=== PATIENT | male | born 1935 | race Caucasian/White ===

== ENCOUNTER → 2016-07-21 | Outpatient (REF) | payer MEDICARE, BC ==
[~2016-07-21] MED LIST: /PANT40TA OR; /TAMS4CA OR; ALBU17IN INH; ALBU83IN IN; ALDA25TA2 OR; APAP325T PO; ASPI81TA3 OR; ASPI81TA85 PO; ATEN50TA2 OR; ATOR40TA PO; CARDIZEM CD PO; CART120C PO; CIPR500T89 PO; COUM1TAB17 PO; COUM2.5T11 PO; COZA25TA8 OR; DIGO0.12 PO; DIGO0.126 OR; DIGO0.25 PO; DILT120C82 PO; DITR5TAB PO; FINA5TAB2 PO; FLOM5CAP PO; FURO1TAB15 PO; FURO20TA2 PO; INSP25TA PO; K-TA10TA2 PO; LASI20TA OR; LOSA25TA8 PO; METF500T PO; METF500T4 PO; MILKSUS PO; MIRA3350 PO; PANT40TA2 PO; PERC5TAB6 PO; POTA10TA16 PO; PROS5TAB OR; SENO8.6T2 PO; TYLE650T25 PO; VENTAER IN; WARF-18 PO; WARF-23 PO; WARF1TAB OR; WARF1TAB PO
[2016-07-21 13:08] LABS: VITAMIN B12 LEVEL 333 PG/ML
[2016-07-21 13:09] LABS: FOLATE 10.7 NG/ML
[2016-07-21 13:11] LABS: MEAN CORPUSCULAR HGB CONC 32.3 g/dl (32.0-36.5); MEAN CORPUSCULAR VOLUME 80.6 fl (80.0-96.0); WHITE BLOOD COUNT 6.7 K/mm3 (4.0-10.0)
[2016-07-21 13:13] LABS: ALBUMIN 3.9 GM/DL (3.2-5.2); ALBUMIN/GLOBULIN RATIO 1.18 (1.00-1.93); ALKALINE PHOSPHATASE 53 U/L (45-117); ALT/SGPT 18 U/L (12-78); ANION GAP 9 MEQ/L (8-16); AST/SGOT 15 U/L (15-37); BLOOD UREA NITROGEN 17 MG/DL (7-18); CALCIUM LEVEL 8.7 MG/DL (8.8-10.2); CARBON DIOXIDE LEVEL 29 MEQ/L (21-32); CHLORIDE LEVEL 106 MEQ/L (98-107); CREATININE FOR GFR 0.98 MG/DL (0.70-1.30); FERRITIN 30 NG/ML (26-388); GLOMERULAR FILTRATION RATE > 60.0 (>35); GLUCOSE, FASTING 136 MG/DL (83-110); PERCENT SATURATION 20.4 % (19.7-37.4); POTASSIUM SERUM 4.6 MEQ/L (3.5-5.1); SODIUM LEVEL 144 MEQ/L (136-145); TOTAL IRON BINDING CAPACITY 368 UG/DL (250-450); TOTAL PROTEIN 7.2 GM/DL (6.4-8.2)
[2016-07-23 10:54] LABS: MAGNESIUM LEVEL 2.1 MG/DL (1.8-2.4)
== END ==
LOC: M SFHCPLAZ 09:26
PROVIDERS: ATTEND Internal Medicine
DX: D64.9 Anemia, unspecified (principal); R73.01 Impaired fasting glucose; I11.0 Hypertensive heart disease with heart failure; R00.2 Palpitations; R94.31 Abnormal electrocardiogram [ECG] [EKG]; E78.00 Pure hypercholesterolemia, unspecified; I48.0 Paroxysmal atrial fibrillation; Z79.01 Long term (current) use of anticoagulants

== ENCOUNTER → 2016-10-31 | Outpatient (CLI) | payer MEDICARE, BC ==
--- NOTE | 2016-10-31 14:09 | REP ---
Clinical: Acute pain. Technique: AP, lateral, bilateral oblique views of the right wrist. Findings: Generalized moderate osteoarthritic degenerative changes are appreciated. No acute fracture or dislocation identified. Impression: Moderate osteoarthritic degenerative changes Signed by Priyank Mosqueda MD 10/31/2016 02:01 P
== END ==
LOC: M ADAMS 13:39
PROVIDERS: ATTEND Physician Assistant Medical
DX: M19.031 Primary osteoarthritis, right wrist (principal)

== ENCOUNTER → 2017-01-20 | Outpatient (REF) | payer MEDICARE, BC ==
[~2017-01-20] MED LIST changes: -APAP325T PO; +APAP325T4 PO; -ATOR40TA PO; +ATOR40TA75 PO; +CIPR-249 PO; -CIPR500T89 PO; -COUM2.5T11 PO; +COUM2.5T17 PO; -FURO1TAB15 PO; +FURO80TA2 PO; -METF500T PO; +METF500T13 PO; +PERC5TAB12 PO; -PERC5TAB6 PO; -SENO8.6T2 PO; +SENO8.6T5 PO
[2017-01-20 12:53] LABS: MEAN CORPUSCULAR HEMOGLOBIN 28.2 pg (27.0-33.0); MEAN CORPUSCULAR HGB CONC 33.8 g/dl (32.0-36.5); MEAN CORPUSCULAR VOLUME 83.2 fl (80.0-96.0); RED CELL DISTRIBUTION WIDTH 15.7 % (11.5-14.5); WHITE BLOOD COUNT 8.7 K/mm3 (4.0-10.0)
[2017-01-20 13:57] LABS: ALBUMIN 3.7 GM/DL (3.2-5.2); ALKALINE PHOSPHATASE 51 U/L (45-117); ALT/SGPT 26 U/L (12-78); ANION GAP 9 MEQ/L (8-16); AST/SGOT 17 U/L (15-37); BILIRUBIN,TOTAL 0.9 MG/DL (0.2-1.0); BLOOD UREA NITROGEN 14 MG/DL (7-18); CALCIUM LEVEL 8.8 MG/DL (8.8-10.2); CARBON DIOXIDE LEVEL 28 MEQ/L (21-32); CHLORIDE LEVEL 103 MEQ/L (98-107); CREATININE FOR GFR 1.12 MG/DL (0.70-1.30); GLOMERULAR FILTRATION RATE > 60.0 (>35); GLUCOSE, FASTING 180 MG/DL (83-110); MAGNESIUM LEVEL 2.2 MG/DL (1.8-2.4); POTASSIUM SERUM 4.3 MEQ/L (3.5-5.1); SODIUM LEVEL 140 MEQ/L (136-145); TOTAL PROTEIN 7.4 GM/DL (6.4-8.2)
== END ==
LOC: M SFHCADAM 09:40
PROVIDERS: ATTEND Internal Medicine
DX: D64.9 Anemia, unspecified (principal); R73.01 Impaired fasting glucose; I11.0 Hypertensive heart disease with heart failure

== ENCOUNTER → 2017-05-15 | Outpatient (REF) | payer MEDICARE, BC ==
[2017-05-15 14:35] LABS: BLOOD UREA NITROGEN 14 MG/DL (7-18); CREATININE FOR GFR 1.02 MG/DL (0.70-1.30); GLOMERULAR FILTRATION RATE > 60.0 (>35); URIC ACID 5.2 MG/DL (3.5-7.2)
== END ==
LOC: M LABDRWAD 12:14
PROVIDERS: ATTEND Physician Assistant Medical
DX: M10.032 Idiopathic gout, left wrist (principal)

== ENCOUNTER 2017-06-12 08:03 | Emergency (ER) | payer MEDICARE, BC | END 2017-06-12 09:09 | disposition home or self-care (01) | LOC: M ED 08:03 | DX: S66.911A Strain of unspecified muscle, fascia and tendon at wrist and hand level, right hand, initial encounter (principal); X58.XXXA Exposure to other specified factors, initial encounter; Y92.018 Other place in single-family (private) house as the place of occurrence of the external cause; Y93.89 Activity, other specified; Y99.8 Other external cause status; M67.431 Ganglion, right wrist; I11.0 Hypertensive heart disease with heart failure; I50.9 Heart failure, unspecified; Z79.899 Other long term (current) drug therapy; Z79.01 Long term (current) use of anticoagulants; Z88.8 Allergy status to other drugs, medicaments and biological substances | CPT/HCPCS: 73110 ==

== ENCOUNTER → 2017-07-21 | Outpatient (REF) | payer MEDICARE, BC ==
[2017-07-21 13:36] LABS: HEMATOCRIT 39.7 % (42.0-52.0); HEMOGLOBIN 12.6 g/dl (14.0-18.0); MEAN CORPUSCULAR HEMOGLOBIN 26.7 pg (27.0-33.0); MEAN CORPUSCULAR HGB CONC 31.7 g/dl (32.0-36.5); MEAN CORPUSCULAR VOLUME 84.1 fl (80.0-96.0); PLATELET COUNT, AUTOMATED 217 10^3/uL (150-450); RED BLOOD COUNT 4.72 10^6/uL (4.30-6.10); RED CELL DISTRIBUTION WIDTH 15.4 % (11.5-14.5); WHITE BLOOD COUNT 7.8 10^3/uL (4.0-10.0)
[2017-07-21 13:56] LABS: ALBUMIN 4.1 GM/DL (3.2-5.2); ALBUMIN/GLOBULIN RATIO 1.24 (1.00-1.93); ALKALINE PHOSPHATASE 47 U/L (45-117); ALT/SGPT 24 U/L (12-78); ANION GAP 6 MEQ/L (8-16); AST/SGOT 21 U/L (7-37); BILIRUBIN,TOTAL 1.2 MG/DL (0.2-1.0); BLOOD UREA NITROGEN 14 MG/DL (7-18); CALCIUM LEVEL 8.4 MG/DL (8.8-10.2); CARBON DIOXIDE LEVEL 29 MEQ/L (21-32); CHLORIDE LEVEL 106 MEQ/L (98-107); CHOLESTEROL LEVEL 89 MG/DL (<200); CHOLESTEROL RISK RATIO 2.119 (<5); CREATININE FOR GFR 1.01 MG/DL (0.70-1.30); GLOMERULAR FILTRATION RATE > 60.0 (>35); GLUCOSE, FASTING 166 MG/DL (70-100); HDL CHOLESTEROL 42 MG/DL (>40); LDL CHOLESTEROL 29.2 MG/DL (<100); NON-HDL-C 47 MG/DL; POTASSIUM SERUM 4.1 MEQ/L (3.5-5.1); SODIUM LEVEL 141 MEQ/L (136-145); TOTAL PROTEIN 7.4 GM/DL (6.4-8.2); TRIGLYCERIDES LEVEL 89 MG/DL (<150)
[2017-07-21 13:59] LABS: ESTIMATED AVERAGE GLUCOSE 166 MG/DL (60-110); HEMOGLOBIN A1c 7.4 %
[2017-07-21 14:57] LABS: MALB URINE SIEMENS 49.7 MG/L; MAU/CREAT RATIO 29.5 MCG/MG (0.0-30.0)
== END ==
LOC: M SFHCADAM 09:30
DX: D64.9 Anemia, unspecified (principal); I50.32 Chronic diastolic (congestive) heart failure; R73.01 Impaired fasting glucose; E78.00 Pure hypercholesterolemia, unspecified
CPT/HCPCS: 83735

== ENCOUNTER 2017-08-13 10:56 | Emergency (ER) | payer MEDICARE, BC ==
[2017-08-13 11:48] LABS: BASO % 0.3 % (0.0-1.0); EOS % 0.4 % (0.0-3.0); HEMATOCRIT 36.8 % (42.0-52.0); HEMOGLOBIN 12.1 g/dl (14.0-18.0); IMMATURE GRANULOCYTE % 0.4 % (0-3.0); LYMPH # 0.8 10^3/uL (1.5-4.5); LYMPH % 10.3 % (24.0-44.0); MEAN CORPUSCULAR HEMOGLOBIN 27.6 pg (27.0-33.0); MEAN CORPUSCULAR HGB CONC 32.9 g/dl (32.0-36.5); MONO # 0.5 10^3/uL (0.0-0.8); MONO % 5.8 % (0.0-5.0); NEUTROPHILS # 6.6 10^3/uL (1.8-7.7); NEUTROPHILS % 82.8 % (36.0-66.0); PLATELET COUNT, AUTOMATED 173 10^3/uL (150-450); RED BLOOD COUNT 4.38 10^6/uL (4.30-6.10); RED CELL DISTRIBUTION WIDTH 14.9 % (11.5-14.5)
[2017-08-13 12:02] LABS: INR 1.93; PROTHROMBIN TIME 22.7 SECONDS (12.4-14.5)
[2017-08-13 12:15] LABS: NT-PRO BNP 233 PG/ML (<450)
[2017-08-13 12:16] LABS: ALBUMIN 3.7 GM/DL (3.2-5.2); ALBUMIN/GLOBULIN RATIO 1.16 (1.00-1.93); ALKALINE PHOSPHATASE 46 U/L (45-117); ALT/SGPT 28 U/L (12-78); ANION GAP 6 MEQ/L (8-16); AST/SGOT 23 U/L (7-37); BILIRUBIN,DIRECT 0.3 MG/DL (0.0-0.2); BILIRUBIN,TOTAL 0.9 MG/DL (0.2-1.0); BLOOD UREA NITROGEN 18 MG/DL (7-18); CALCIUM LEVEL 8.3 MG/DL (8.8-10.2); CARBON DIOXIDE LEVEL 29 MEQ/L (21-32); CHLORIDE LEVEL 106 MEQ/L (98-107); CPK CREATINE PHOSPHOKINASE 160 U/L (39-308); CREATININE FOR GFR 1.07 MG/DL (0.70-1.30); GLOMERULAR FILTRATION RATE > 60.0 (>35); GLUCOSE, FASTING 210 MG/DL (70-100); LIPASE 169 U/L (73-393); SODIUM LEVEL 141 MEQ/L (136-145); TOTAL PROTEIN 6.9 GM/DL (6.4-8.2); TROPONIN I 0.02 NG/ML (< 0.10)
[2017-08-13 12:21] LABS: MB/CK RELATIVE INDEX 1.87 (< OR =4)
[2017-08-13 12:59] LABS: DIGOXIN LEVEL 1.1 NG/ML (0.5-2.0)
[2017-08-13 18:01] LABS: CK-MB VALUE MASS 3.4 NG/ML (0.0-3.6); CPK CREATINE PHOSPHOKINASE 164 U/L (39-308); MB/CK RELATIVE INDEX 2.07 (< OR =4); TROPONIN I < 0.02 NG/ML (< 0.10)
== END 2017-08-13 18:47 | disposition home or self-care (01) ==
LOC: M ED 10:56
DX: R55 Syncope and collapse (principal); I48.91 Unspecified atrial fibrillation; I50.9 Heart failure, unspecified; N40.0 Benign prostatic hyperplasia without lower urinary tract symptoms; I49.5 Sick sinus syndrome; I34.9 Nonrheumatic mitral valve disorder, unspecified; N52.9 Male erectile dysfunction, unspecified; Z95.0 Presence of cardiac pacemaker; Z87.891 Personal history of nicotine dependence; Z88.8 Allergy status to other drugs, medicaments and biological substances; Z79.899 Other long term (current) drug therapy; Z79.01 Long term (current) use of anticoagulants
CPT/HCPCS: 71046

== ENCOUNTER → 2017-10-14 | Outpatient (CLI) | payer MEDICARE, BC ==
[2017-10-14 12:08] LABS: HEMATOCRIT 39.7 % (42.0-52.0); HEMOGLOBIN 12.8 g/dl (13.5-17.5); MEAN CORPUSCULAR HEMOGLOBIN 27.2 pg (27.0-33.0); MEAN CORPUSCULAR HGB CONC 32.2 g/dl (32.0-36.5); MEAN CORPUSCULAR VOLUME 84.5 fl (80.0-96.0); PLATELET COUNT, AUTOMATED 206 10^3/uL (150-450); RED CELL DISTRIBUTION WIDTH 15.3 % (11.5-14.5); WHITE BLOOD COUNT 7.6 10^3/uL (4.0-10.0)
[2017-10-14 12:15] LABS: APPEARANCE, URINE CLEAR (CLEAR); BACTERIA, URINE AUTO NEGATIVE (NEGATIVE); BILIRUBIN, URINE AUTO NEGATIVE (NEGATIVE); BLOOD, URINE BLOOD NEGATIVE (NEGATIVE); COLOR, URINE YELLOW (YELLOW); GLUCOSE, URINE (UA) AUTO NEGATIVE (NEGATIVE); KETONE, URINE AUTO NEGATIVE (NEGATIVE); LEUKOCYTE ESTERASE, URINE AUTO NEGATIVE (NEGATIVE); MUCUS, URINE SMALL (NEGATIVE); NITRITE, URINE AUTO NEGATIVE (NEGATIVE); PROTEIN, URINE AUTO NEGATIVE (NEGATIVE); RBC, URINE AUTO 3 /HPF (0-3); SPECIFIC GRAVITY URINE AUTO 1.018 (1.002-1.035); SQUAMOUS EPITHELIAL CELL UR AU 1 /HPF (0-6); UROBILINOGEN, URINE AUTO 0.2 mg/dL (0.0-2.0); WBC, URINE AUTO 1 /HPF (0-3)
[2017-10-14 12:20] LABS: PROTHROMBIN TIME 24.3 SECONDS (12.4-14.5)
[2017-10-14 12:45] LABS: ALBUMIN/GLOBULIN RATIO 1.03 (1.00-1.93); ALKALINE PHOSPHATASE 55 U/L (45-117); ALT/SGPT 27 U/L (12-78); ANION GAP 2 MEQ/L (8-16); AST/SGOT 26 U/L (7-37); BILIRUBIN,TOTAL 0.9 MG/DL (0.2-1.0); BLOOD UREA NITROGEN 16 MG/DL (7-18); CALCIUM LEVEL 9.1 MG/DL (8.8-10.2); CARBON DIOXIDE LEVEL 32 MEQ/L (21-32); CHLORIDE LEVEL 107 MEQ/L (98-107); CREATININE FOR GFR 0.99 MG/DL (0.70-1.30); GLOMERULAR FILTRATION RATE > 60.0 (>35); GLUCOSE, FASTING 118 MG/DL (70-100); POTASSIUM SERUM 4.4 MEQ/L (3.5-5.1); SODIUM LEVEL 141 MEQ/L (136-145); TOTAL PROTEIN 7.9 GM/DL (6.4-8.2)
[2017-10-14 13:01] LABS: ERYTHROCYTE SEDIMENTATION RATE 19 mm/hr (0-20)
== END ==
LOC: M ADMPAT 10:27
DX: M17.11 Unilateral primary osteoarthritis, right knee (principal); Z79.01 Long term (current) use of anticoagulants
CPT/HCPCS: 80053

== ENCOUNTER 2017-10-27 08:40 | Inpatient (IN) | payer MEDICARE, BC ==
[2017-10-27 09:35] LABS: INR 1.27; PROTHROMBIN TIME 16.2 SECONDS (12.4-14.5)
[2017-10-27] MEDS ORDERED: fentaNYL 100 MCG/2 ML INJECTION (J3010) As Ordered ×2 (09:40→11:21)
[2017-10-27] MEDS ORDERED: MIDAZOLAM INJ 2 MG/2 ML VIAL (J2250) As Ordered ×2 (09:40→11:21)
[2017-10-27] MEDS: ACETAMINOPHEN 500 MG TAB PO (09:47)
[2017-10-27] MEDS: LR 1,000 ML IV ×3 (09:48→13:15)
[2017-10-27] MEDS: fentaNYL 100 MCG/2 ML INJECTION (J3010) IV (10:08)
[2017-10-27] MEDS: MIDAZOLAM INJ 2 MG/2 ML VIAL (J2250) IV (10:08)
[2017-10-27] MEDS ORDERED: ROPIvacaine 0.5% 30 ML INJECTION (J2795 PER 1MG) (11:19)
[2017-10-27] MEDS ORDERED: PROPOFOL 200 MG/20 ML VIAL As Ordered (11:21)
[2017-10-27] MEDS ORDERED: LIDOCAINE 2% INJ 100 MG/5 ML SDV (FOR ANES.) As Ordered (11:21)
[2017-10-27] MEDS ORDERED: BUPIVACAINE/DEXTROSE 0.75% 2 ML AMP As Ordered (11:21)
[2017-10-27] MEDS ORDERED: ePHEDrine SULFATE 25 MG/5 ML(5MG/ML) SYRINGE As Ordered (11:22)
[2017-10-27] MEDS ORDERED: ONDANSETRON 4MG/2ML VIAL (J2405) As Ordered (11:35)
[2017-10-27] MEDS: TRANEXAMIC ACID 100 MG/ML 10ML VIAL As Ordered (12:34)
[2017-10-27] MEDS: EPINEPHrine INJ 1 MG/ML 1ML AMP As Ordered (12:34)
[2017-10-27] MEDS: BUPIVACAINE HCL 0.25% 10 ML VIAL As Ordered (12:35)
[2017-10-27] MEDS: BUPIVACAINE LIPOSOME/PF 1.3% 20 ML VIAL (13.3MG/ML)(EXPAREL) As Ordered (12:35)
[2017-10-27] MEDS: ceFAZolin 1GM INJ (J0690 PER 500MG) As Ordered (12:37)
[2017-10-27] MEDS ORDERED: MORPHINE 1MG/ML IN 0.9% NACL 100ML IV BAG As Ordered (12:43)
[2017-10-27] MEDS ORDERED: ONDANSETRON 4MG/2ML VIAL (J2405) IV (13:15)
[2017-10-27] MEDS ORDERED: NALOXONE INJ 0.4 MG/1 ML VIAL (J2310) IV (13:15)
[2017-10-27] MEDS ORDERED: NALBUPHINE HCL 10 MG/ML AMP (J2300) IV (13:15)
[2017-10-27] MEDS ORDERED: EPIDURAL/PCA KEYS XX (13:15)
[2017-10-27] MEDS ORDERED: diphenhydrAMINE INJ 50MG/ML VIAL (J1200) IV (13:15)
[2017-10-27] MEDS ORDERED: FLEET ENEMA PR (13:15)
[2017-10-27] MEDS ORDERED: fentaNYL 100 MCG/2 ML INJECTION (J3010) IV (13:15)
[2017-10-27] MEDS: MORPHINE 1MG/ML IN 0.9% NACL 100ML IV BAG IV (13:15)
[2017-10-27] MEDS ORDERED: ALBUTEROL SULFATE 2.5 MG/0.5 ML INH NEB SOLN INH (13:45)
[2017-10-27] MEDS ORDERED: EPINEPHrine INJ 1 MG/ML 1ML AMP (14:32)
[2017-10-27] MEDS ORDERED: LIDOCAINE 1% MDV 20ML VIAL (14:32)
[2017-10-27 17:21] LABS: BEDSIDE GLUCOSE 210 MG/DL (83-110)
[2017-10-27] MEDS: DIGOXIN 0.25 MG TAB PO (17:22)
[2017-10-27] MEDS: WARFARIN SOD 5 MG TAB PO (17:23)
[2017-10-27] MEDS: FAMOTIDINE 20 MG TAB PO (20:24)
[2017-10-27] MEDS: ATORVASTATIN 20 MG TAB PO (20:24)
[2017-10-28] MEDS: LR 1,000 ML IV (01:43)
[2017-10-28 06:37] LABS: BEDSIDE GLUCOSE 194 MG/DL (83-110)
[2017-10-28] MEDS ORDERED: ONDANSETRON 4 MG TAB (S0181) PO (06:45)
[2017-10-28] MEDS ORDERED: NORCO, ANEXSIA 5/325MG TABLET (HYDROcodone/ACETAMINOPHEN) PO ×2 (06:45)
[2017-10-28 07:03] LABS: HEMATOCRIT 35.1 % (42.0-52.0); HEMOGLOBIN 11.5 g/dl (13.5-17.5); MEAN CORPUSCULAR HEMOGLOBIN 27.6 pg (27.0-33.0); MEAN CORPUSCULAR HGB CONC 32.8 g/dl (32.0-36.5); MEAN CORPUSCULAR VOLUME 84.4 fl (80.0-96.0); PLATELET COUNT, AUTOMATED 154 10^3/uL (150-450); RED BLOOD COUNT 4.16 10^6/uL (4.30-6.10); RED CELL DISTRIBUTION WIDTH 15.2 % (11.5-14.5); WHITE BLOOD COUNT 11.9 10^3/uL (4.0-10.0)
[2017-10-28 07:20] LABS: INR 1.48; PROTHROMBIN TIME 18.3 SECONDS (12.4-14.5)
[2017-10-28 07:42] LABS: ALBUMIN 3.2 GM/DL (3.2-5.2); ALKALINE PHOSPHATASE 47 U/L (45-117); ALT/SGPT 19 U/L (12-78); ANION GAP 7 MEQ/L (8-16); AST/SGOT 19 U/L (7-37); BILIRUBIN,TOTAL 0.6 MG/DL (0.2-1.0); BLOOD UREA NITROGEN 13 MG/DL (7-18); CARBON DIOXIDE LEVEL 27 MEQ/L (21-32); CHLORIDE LEVEL 106 MEQ/L (98-107); DIGOXIN LEVEL 1.2 NG/ML (0.5-2.0); FERRITIN 74 NG/ML (26-388); GLOMERULAR FILTRATION RATE > 60.0 (>35); GLUCOSE, FASTING 167 MG/DL (70-100); IRON (FE) 22 UG/DL (65-175); PERCENT SATURATION 7.9 % (19.7-50.0); POTASSIUM SERUM 4.1 MEQ/L (3.5-5.1); SODIUM LEVEL 140 MEQ/L (136-145); TOTAL IRON BINDING CAPACITY 280 UG/DL (250-450); TOTAL PROTEIN 6.4 GM/DL (6.4-8.2)
[2017-10-28] MEDS: SENOKOT S TAB PO ×2 (08:15→20:49)
[2017-10-28] MEDS: MOM 30ML SUSPENSION UDC PO (08:15)
[2017-10-28] MEDS: MIRALAX *UNIT DOSE* 17GM PACKET PO ×2 (08:15→08:18)
[2017-10-28] MEDS: traMADol 50 MG TAB PO ×2 (08:16→20:49)
[2017-10-28 08:59] LABS: FOLATE 5.1 NG/ML (>5.4)
[2017-10-28 09:03] LABS: VITAMIN B12 LEVEL 194 PG/ML (247-911)
[2017-10-28 12:09] LABS: BEDSIDE GLUCOSE 197 MG/DL (83-110)
[2017-10-28] MEDS: KETOROLAC 30 MG/ML VIAL (J1885) IV (12:28)
[2017-10-28 17:35] LABS: BEDSIDE GLUCOSE 130 MG/DL (83-110)
[2017-10-28] MEDS: WARFARIN SOD 5 MG TAB PO (18:08)
[2017-10-28] MEDS: DIGOXIN 0.25 MG TAB PO (18:09)
[2017-10-28] MEDS: FAMOTIDINE 20 MG TAB PO (20:47)
[2017-10-29] MEDS: traMADol 50 MG TAB PO ×3 (05:55→20:26)
[2017-10-29 06:01] LABS: BEDSIDE GLUCOSE 121 MG/DL (83-110)
[2017-10-29 06:28] LABS: HEMATOCRIT 35.9 % (42.0-52.0); HEMOGLOBIN 11.6 g/dl (13.5-17.5); MEAN CORPUSCULAR HEMOGLOBIN 27.5 pg (27.0-33.0); MEAN CORPUSCULAR HGB CONC 32.3 g/dl (32.0-36.5); MEAN CORPUSCULAR VOLUME 85.1 fl (80.0-96.0); PLATELET COUNT, AUTOMATED 163 10^3/uL (150-450); RED BLOOD COUNT 4.22 10^6/uL (4.30-6.10); RED CELL DISTRIBUTION WIDTH 15.5 % (11.5-14.5); WHITE BLOOD COUNT 14.5 10^3/uL (4.0-10.0)
[2017-10-29 06:44] LABS: INR 1.89; PROTHROMBIN TIME 22.3 SECONDS (12.4-14.5)
[2017-10-29 06:47] LABS: ANION GAP 8 MEQ/L (8-16); BLOOD UREA NITROGEN 16 MG/DL (7-18); CALCIUM LEVEL 8.3 MG/DL (8.8-10.2); CARBON DIOXIDE LEVEL 26 MEQ/L (21-32); CHLORIDE LEVEL 105 MEQ/L (98-107); GLOMERULAR FILTRATION RATE > 60.0 (>35); GLUCOSE, FASTING 142 MG/DL (70-100); POTASSIUM SERUM 4.2 MEQ/L (3.5-5.1); SODIUM LEVEL 139 MEQ/L (136-145)
[2017-10-29] MEDS: MOM 30ML SUSPENSION UDC PO (09:53)
[2017-10-29] MEDS: MIRALAX *UNIT DOSE* 17GM PACKET PO (09:53)
[2017-10-29] MEDS: SENOKOT S TAB PO ×2 (09:54→20:25)
[2017-10-29] MEDS: ACETAMINOPHEN TAB 650MG DOSE (2X325MG) PO (14:16)
[2017-10-29] MEDS: WARFARIN SOD 5 MG TAB PO (17:56)
[2017-10-29] MEDS: DIGOXIN 0.25 MG TAB PO (17:57)
[2017-10-29 18:16] LABS: BEDSIDE GLUCOSE 155 MG/DL (83-110)
[2017-10-29 18:32] LABS: KETONE, URINE AUTO RFX NEGATIVE (NEGATIVE); LEUKOCYTE ESTERASE UR AUTO RFX NEGATIVE (NEGATIVE); MUCUS, URINE RFX SMALL (NEGATIVE); NITRITE, URINE AUTO RFX NEGATIVE (NEGATIVE); RBC, URINE AUTO RFX 2 /HPF (0-3); SPECIFIC GRAVITY UR AUTO RFX 1.023 (1.002-1.035); SQUAM EPITHELIAL CELL UR AURFX 3 /HPF (0-6); WBC, URINE AUTO RFX 2 /HPF (0-3)
[2017-10-29] MEDS: ATORVASTATIN 20 MG TAB PO (20:25)
[2017-10-29] MEDS: FAMOTIDINE 20 MG TAB PO (20:25)
[2017-10-30] MEDS: traMADol 50 MG TAB PO ×2 (05:39→13:25)
[2017-10-30 06:13] LABS: BEDSIDE GLUCOSE 133 MG/DL (83-110)
[2017-10-30 06:35] LABS: HEMATOCRIT 33.3 % (42.0-52.0); HEMOGLOBIN 10.9 g/dl (13.5-17.5); MEAN CORPUSCULAR HEMOGLOBIN 27.6 pg (27.0-33.0); MEAN CORPUSCULAR HGB CONC 32.7 g/dl (32.0-36.5); MEAN CORPUSCULAR VOLUME 84.3 fl (80.0-96.0); PLATELET COUNT, AUTOMATED 152 10^3/uL (150-450); RED BLOOD COUNT 3.95 10^6/uL (4.30-6.10); RED CELL DISTRIBUTION WIDTH 15.3 % (11.5-14.5); WHITE BLOOD COUNT 12.1 10^3/uL (4.0-10.0)
[2017-10-30 06:52] LABS: INR 2.21; PROTHROMBIN TIME 25.3 SECONDS (12.4-14.5)
[2017-10-30 07:15] LABS: ANION GAP 4 MEQ/L (8-16); BLOOD UREA NITROGEN 17 MG/DL (7-18); CARBON DIOXIDE LEVEL 28 MEQ/L (21-32); CHLORIDE LEVEL 103 MEQ/L (98-107); CREATININE FOR GFR 1.02 MG/DL (0.70-1.30); GLOMERULAR FILTRATION RATE > 60.0 (>35); GLUCOSE, FASTING 119 MG/DL (70-100); SODIUM LEVEL 135 MEQ/L (136-145)
[2017-10-30 08:45] LABS: ERYTHROCYTE SEDIMENTATION RATE 56 mm/hr (0-20)
[2017-10-30] MEDS: MOM 30ML SUSPENSION UDC PO (08:45)
[2017-10-30] MEDS: MIRALAX *UNIT DOSE* 17GM PACKET PO (08:45)
[2017-10-30] MEDS: SENOKOT S TAB PO (08:45)
== END 2017-10-30 13:40 | disposition home health service (06) | DRG 470 ==
LOC: M OR 08:40 → M MS5PR 13:45
PROC: 0SRC0J9 Replacement of Right Knee Joint with Synthetic Substitute, Cemented, Open Approach (ICD-10-PCS; principal; 2017-10-27 11:13)
DX: M17.11 Unilateral primary osteoarthritis, right knee (principal); I50.32 Chronic diastolic (congestive) heart failure; I11.0 Hypertensive heart disease with heart failure; Z79.899 Other long term (current) drug therapy; J44.9 Chronic obstructive pulmonary disease, unspecified; F41.9 Anxiety disorder, unspecified; Z95.0 Presence of cardiac pacemaker; Z95.2 Presence of prosthetic heart valve; Z96.652 Presence of left artificial knee joint; N40.0 Benign prostatic hyperplasia without lower urinary tract symptoms; G47.33 Obstructive sleep apnea (adult) (pediatric); K21.9 Gastro-esophageal reflux disease without esophagitis; Z88.8 Allergy status to other drugs, medicaments and biological substances

== ENCOUNTER → 2018-02-03 | Outpatient (REF) | payer MEDICARE, BC ==
[2018-02-03 12:55] LABS: HEMATOCRIT 37.2 % (42.0-52.0); HEMOGLOBIN 11.8 g/dl (13.5-17.5); MEAN CORPUSCULAR HEMOGLOBIN 27.1 pg (27.0-33.0); MEAN CORPUSCULAR HGB CONC 31.7 g/dl (32.0-36.5); MEAN CORPUSCULAR VOLUME 85.3 fl (80.0-96.0); PLATELET COUNT, AUTOMATED 223 10^3/uL (150-450); RED BLOOD COUNT 4.36 10^6/uL (4.30-6.10); RED CELL DISTRIBUTION WIDTH 16.3 % (11.5-14.5); WHITE BLOOD COUNT 7.9 10^3/uL (4.0-10.0)
[2018-02-03 13:20] LABS: ALBUMIN 3.7 GM/DL (3.2-5.2); ALBUMIN/GLOBULIN RATIO 0.93 (1.00-1.93); ALKALINE PHOSPHATASE 55 U/L (45-117); ALT/SGPT 23 U/L (12-78); ANION GAP 8 MEQ/L (8-16); AST/SGOT 15 U/L (7-37); BILIRUBIN,TOTAL 0.7 MG/DL (0.2-1.0); BLOOD UREA NITROGEN 19 MG/DL (7-18); CALCIUM LEVEL 8.7 MG/DL (8.8-10.2); CARBON DIOXIDE LEVEL 29 MEQ/L (21-32); CHLORIDE LEVEL 107 MEQ/L (98-107); CREATININE FOR GFR 0.99 MG/DL (0.70-1.30); GLOMERULAR FILTRATION RATE > 60.0 (>35); GLUCOSE, FASTING 126 MG/DL (70-100); POTASSIUM SERUM 4.4 MEQ/L (3.5-5.1); SODIUM LEVEL 144 MEQ/L (136-145); TOTAL PROTEIN 7.7 GM/DL (6.4-8.2)
[2018-02-03 14:05] LABS: ESTIMATED AVERAGE GLUCOSE 143 MG/DL (60-110); HEMOGLOBIN A1c 6.6 %
== END ==
LOC: M SFHCADAM 10:04
DX: D64.9 Anemia, unspecified (principal); E78.00 Pure hypercholesterolemia, unspecified; E11.9 Type 2 diabetes mellitus without complications
CPT/HCPCS: 80053

== ENCOUNTER 2018-05-28 12:45 | Emergency (ER) | payer MEDICARE, BC ==
[2018-05-28] MEDS: MECLIZINE 25 MG TABLET PO (13:37)
[2018-05-28 13:48] LABS: BASO % 0.2 % (0.0-1.0); EOS % 0.2 % (0.0-3.0); HEMATOCRIT 38.2 % (42.0-52.0); HEMOGLOBIN 12.4 g/dl (13.5-17.5); IMMATURE GRANULOCYTE % 0.5 % (0-3.0); LYMPH # 0.9 10^3/uL (1.5-4.5); LYMPH % 10.2 % (24.0-44.0); MEAN CORPUSCULAR HEMOGLOBIN 27.6 pg (27.0-33.0); MEAN CORPUSCULAR HGB CONC 32.5 g/dl (32.0-36.5); MEAN CORPUSCULAR VOLUME 85.1 fl (80.0-96.0); MONO # 0.5 10^3/uL (0.0-0.8); MONO % 5.2 % (0.0-5.0); NEUTROPHILS # 7.4 10^3/uL (1.8-7.7); NEUTROPHILS % 83.7 % (36.0-66.0); PLATELET COUNT, AUTOMATED 177 10^3/uL (150-450); RED BLOOD COUNT 4.49 10^6/uL (4.30-6.10); RED CELL DISTRIBUTION WIDTH 15.6 % (11.5-14.5); WHITE BLOOD COUNT 8.9 10^3/uL (4.0-10.0)
[2018-05-28 14:00] LABS: INR 2.13; PROTHROMBIN TIME 24.2 SECONDS (12.1-14.4)
[2018-05-28 14:36] LABS: ANION GAP 7 MEQ/L (8-16); BLOOD UREA NITROGEN 17 MG/DL (7-18); CALCIUM LEVEL 8.7 MG/DL (8.8-10.2); CARBON DIOXIDE LEVEL 27 MEQ/L (21-32); CHLORIDE LEVEL 106 MEQ/L (98-107); CPK CREATINE PHOSPHOKINASE 105 U/L (39-308); CREATININE FOR GFR 1.08 MG/DL (0.70-1.30); GLOMERULAR FILTRATION RATE > 60.0 (>35); MAGNESIUM LEVEL 2.2 MG/DL (1.8-2.4); MB/CK RELATIVE INDEX 1.71 (< OR =4); POTASSIUM SERUM 4.4 MEQ/L (3.5-5.1); SODIUM LEVEL 140 MEQ/L (136-145); TROPONIN I < 0.02 NG/ML (< 0.10)
[2018-05-28 15:01] LABS: GLUCOSE, FASTING 171 MG/DL (70-100)
== END 2018-05-28 15:39 | disposition home or self-care (01) ==
LOC: M ED 12:45
DX: R42 Dizziness and giddiness (principal); H83.01 Labyrinthitis, right ear; I10 Essential (primary) hypertension; I25.10 Atherosclerotic heart disease of native coronary artery without angina pectoris; Z95.0 Presence of cardiac pacemaker; Z79.899 Other long term (current) drug therapy; Z79.01 Long term (current) use of anticoagulants; Z88.8 Allergy status to other drugs, medicaments and biological substances; Z87.891 Personal history of nicotine dependence
CPT/HCPCS: 70450

== ENCOUNTER → 2018-08-10 | Outpatient (REF) | payer MEDICARE, BC ==
[~2018-08-10] MED LIST changes: +AMOX500C PO; +EPLE25TA PO; +FLOM0.4C39 PO; -FLOM5CAP PO; +LOSA25TA14 PO; -LOSA25TA8 PO; +MECL-68 PO; +MILK120011 PO; -MILKSUS PO; +NORCOTAB PO; -PANT40TA2 PO; +PANT40TA3 PO; +PRED10TA2 PO; +RANI150T PO; +RANI1TAB6 PO; +TRAM50TA2 PO
[2018-08-10 13:21] LABS: HEMATOCRIT 40.3 % (42.0-52.0); HEMOGLOBIN 12.7 g/dl (13.5-17.5); MEAN CORPUSCULAR HEMOGLOBIN 27.7 pg (27.0-33.0); MEAN CORPUSCULAR HGB CONC 31.5 g/dl (32.0-36.5); MEAN CORPUSCULAR VOLUME 87.8 fl (80.0-96.0); PLATELET COUNT, AUTOMATED 189 10^3/uL (150-450); RED BLOOD COUNT 4.59 10^6/uL (4.30-6.10); WHITE BLOOD COUNT 10.3 10^3/uL (4.0-10.0)
[2018-08-10 13:56] LABS: MAU/CREAT RATIO 53.8 MCG/MG (0.0-30.0)
[2018-08-10 14:19] LABS: ALBUMIN 3.8 GM/DL (3.2-5.2); ALT/SGPT 34 U/L (12-78); BLOOD UREA NITROGEN 15 MG/DL (7-18); CALCIUM LEVEL 8.4 MG/DL (8.8-10.2); CARBON DIOXIDE LEVEL 26 MEQ/L (21-32); CHLORIDE LEVEL 105 MEQ/L (98-107); CHOLESTEROL LEVEL 96 MG/DL (<200); CHOLESTEROL RISK RATIO 1.811 (<5); CREATININE FOR GFR 1.12 MG/DL (0.70-1.30); GLOMERULAR FILTRATION RATE > 60.0 (>35); GLUCOSE, FASTING 140 MG/DL (70-100); HDL CHOLESTEROL 53 MG/DL (>40); LDL CHOLESTEROL 16 MG/DL (<100); MAGNESIUM LEVEL 2.5 MG/DL (1.8-2.4); NON-HDL-C 43 MG/DL; POTASSIUM SERUM 4.6 MEQ/L (3.5-5.1); SODIUM LEVEL 140 MEQ/L (136-145); TOTAL PROTEIN 7.1 GM/DL (6.4-8.2); TRIGLYCERIDES LEVEL 133 MG/DL (<150); URIC ACID 5.7 MG/DL (3.5-7.2)
[2018-08-10 14:28] LABS: HEMOGLOBIN A1c 7.1 %
== END ==
LOC: M SFHCADAM 08:47
PROVIDERS: ATTEND Internal Medicine
DX: D64.9 Anemia, unspecified (principal); I11.0 Hypertensive heart disease with heart failure; E11.9 Type 2 diabetes mellitus without complications; E78.00 Pure hypercholesterolemia, unspecified; M12.9 Arthropathy, unspecified; Z79.01 Long term (current) use of anticoagulants

== ENCOUNTER → 2018-08-16 | Outpatient (REF) | payer MEDICARE, BC ==
[2018-08-16 19:17] LABS: C REACTIVE PROTEIN QUANTITATIV 0.82 MG/DL (0.00-0.30); RHEUMATOID FACTOR QUANT < 10.0 IU/ML (<15.0)
[2018-08-19 00:06] LABS: CYCLIC CITRULLINATED PEPTIDE 6 units (0-19); Lyme Disease IgG/IgM Antibodie <0.91 ISR (0.00-0.90); Lyme Disease IgM Ab Quantitati <0.80 index (0.00-0.79)
== END ==
LOC: M SFHCPLAZ 14:58
PROVIDERS: ATTEND Internal Medicine
DX: M25.532 Pain in left wrist (principal); M25.531 Pain in right wrist
CPT/HCPCS: 36415; 69209; 85652; 86140; 86200; 86431; 86617; G0463

== ENCOUNTER → 2019-02-09 | Outpatient (REF) | payer MEDICARE, BC ==
[~2019-02-09] MED LIST changes: -/PANT40TA OR; -/TAMS4CA OR; -DILT120C82 PO; +DILT1CAP2 PO; +FLOM0.4C39 OR; +HYDR-3715 PO; -NORCOTAB PO; +PROT1TAB2 OR
[2019-02-09 12:59] LABS: ALBUMIN 3.7 GM/DL (3.2-5.2); CALCIUM LEVEL 8.6 MG/DL (8.8-10.2); CREATININE FOR GFR 1.24 MG/DL (0.70-1.30); GLOMERULAR FILTRATION RATE 59.1 (>35); MAGNESIUM LEVEL 2.1 MG/DL (1.8-2.4); POTASSIUM SERUM 4.1 MEQ/L (3.5-5.1); TOTAL PROTEIN 7.2 GM/DL (6.4-8.2); URIC ACID 6.7 MG/DL (3.5-7.2)
[2019-02-09 13:20] LABS: HEMOGLOBIN A1c 7.6 %
[2019-02-09 13:43] LABS: MAU/CREAT RATIO 60.8 MCG/MG (0.0-30.0)
== END ==
LOC: M SFHCADAM 09:27
PROVIDERS: ATTEND Internal Medicine
DX: I11.0 Hypertensive heart disease with heart failure (principal); E11.9 Type 2 diabetes mellitus without complications; M12.9 Arthropathy, unspecified

== ENCOUNTER → 2019-08-04 | Outpatient (REF) | payer MEDICARE, BC ==
[~2019-08-04] MED LIST changes: +DICL1GEL3 TOP; +DIGO0.253 PO; +JANU100T PO; +MAPA325T2 PO; -MECL-68 PO; +MECL1TAB31 PO; +METF-791 PO; -METF500T4 PO; +RANI-397 PO; -RANI1TAB6 PO; +VENTAER INH; +VOLT1GEL15 TD
[2019-08-04 19:53] LABS: BASO % 0.4 % (0.0-1.0); EOS # 0.1 10^3/uL (0.0-0.5); EOS % 1.5 % (0.0-3.0); HEMOGLOBIN 11.8 g/dl (13.5-17.5); LYMPH # 1.4 10^3/uL (1.5-5.0); LYMPH % 14.8 % (24.0-44.0); MEAN CORPUSCULAR HEMOGLOBIN 28.3 pg (27.0-33.0); MEAN CORPUSCULAR HGB CONC 31.9 g/dl (32.0-36.5); MEAN CORPUSCULAR VOLUME 88.7 fl (80.0-96.0); MONO # 0.9 10^3/uL (0.0-0.8); MONO % 9.7 % (0.0-5.0); NEUTROPHILS # 6.8 10^3/uL (1.5-8.5); NEUTROPHILS % 72.7 % (36.0-66.0); PLATELET COUNT, AUTOMATED 187 10^3/uL (150-450); RED BLOOD COUNT 4.17 10^6/uL (4.30-6.10); WHITE BLOOD COUNT 9.4 10^3/uL (4.0-10.0)
[2019-08-04 20:16] LABS: ALBUMIN 4.1 GM/DL (3.2-5.2); BLOOD UREA NITROGEN 20 MG/DL (7-18); CALCIUM LEVEL 8.1 MG/DL (8.8-10.2); CARBON DIOXIDE LEVEL 29 MEQ/L (21-32); CHLORIDE LEVEL 108 MEQ/L (98-107); GLOMERULAR FILTRATION RATE > 60.0 (>35); GLUCOSE, FASTING 132 MG/DL (70-100); NT-PRO BNP 414 PG/ML (<450); PHOSPHORUS LEVEL 2.8 MG/DL (2.5-4.9); SODIUM LEVEL 142 MEQ/L (136-145)
== END ==
LOC: M LABDRWAD 19:21
PROVIDERS: ATTEND Internal Medicine Cardiovascular Disease
DX: Z01.810 Encounter for preprocedural cardiovascular examination (principal); I48.0 Paroxysmal atrial fibrillation; Z95.3 Presence of xenogenic heart valve; I50.32 Chronic diastolic (congestive) heart failure; I11.0 Hypertensive heart disease with heart failure

== ENCOUNTER 2019-08-08 07:54 | Day surgery (SDC) | payer MEDICARE, BC ==
[~2019-08-08] VITALS: Ht 170.2 cm; Wt 73.5 kg
[~2019-08-08 07:54] MED LIST changes: +LR 1,000 ML IV ONE; +ceFAZolin SOD 2 GM in IV 1 EA IV ONE
[2019-08-08 08:42] LABS: HEMATOCRIT 38.2 % (42.0-52.0); HEMOGLOBIN 12.3 g/dl (13.5-17.5); MEAN CORPUSCULAR HEMOGLOBIN 28.1 pg (27.0-33.0); MEAN CORPUSCULAR HGB CONC 32.2 g/dl (32.0-36.5); MEAN CORPUSCULAR VOLUME 87.4 fl (80.0-96.0); PLATELET COUNT, AUTOMATED 176 10^3/uL (150-450); RED BLOOD COUNT 4.37 10^6/uL (4.30-6.10); WHITE BLOOD COUNT 7.9 10^3/uL (4.0-10.0)
[2019-08-08 08:50] LABS: INR 2.15; PROTHROMBIN TIME 23.8 SECONDS (11.8-14.0)
[2019-08-08 09:06] LABS: BILIRUBIN,TOTAL 2.2 MG/DL (0.2-1.0); CALCIUM LEVEL 8.4 MG/DL (8.8-10.2); CREATININE FOR GFR 1.33 MG/DL (0.70-1.30); GLOMERULAR FILTRATION RATE 54.4 (>35); POTASSIUM SERUM 4.1 MEQ/L (3.5-5.1); TOTAL PROTEIN 7.9 GM/DL (6.4-8.2)
[2019-08-08] MEDS ORDERED: fentaNYL 100 MCG/2 ML INJECTION (J3010) As Ordered ONE (09:46)
[2019-08-08] MEDS ORDERED: MIDAZOLAM INJ 2 MG/2 ML VIAL (J2250) As Ordered ONE (09:46)
[2019-08-08] MEDS ORDERED: ONDANSETRON 4MG/2ML VIAL (J2405) As Ordered ONE (09:46)
[2019-08-08] MEDS ORDERED: propofoL 200 MG/20 ML VIAL As Ordered ONE (09:46)
[2019-08-08] MEDS ORDERED: LIDOCAINE 2% INJ 100 MG/5 ML SDV (FOR ANES.) As Ordered ONE (09:46)
[2019-08-08] MEDS ORDERED: LIDOCAINE 1% SDV INJ 30 ML VIAL As Ordered ONE (10:21)
[2019-08-08] MEDS ORDERED: BACITRACIN PWD 50,000 UNITS VIAL As Ordered ONE (10:28)
[2019-08-08] MEDS ORDERED: PHENYLephrine HCL 500 MCG/5 ML (100MCG/ML) SYRINGE (J2370) As Ordered ONE (10:38)
--- NOTE | 2019-08-08 11:22 | RO ---
DATE OF PROCEDURE: 08/08/2019 TITLE OF PROCEDURE: 1. Explantation of depleted pacemaker pulse generator. 2. Testing of old atrial and ventricular pacing leads. 3. Implantation of new dual-chamber pulse generator. IMPLANTING LABEL CUTTER: Dr. Abdelrahman Pineda ANESTHESIOLOGIST: Dr. Levy PREOPERATIVE DIAGNOSES: 1. Pacemaker battery depletion. 2. Tachy-elizabeth syndrome. POSTOPERATIVE DIAGNOSES: 1. Pacemaker battery depletion. 2. Tachy-elizabeth syndrome. TYPE OF ANESTHESIA: Monitored local anesthesia. 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 Has had a permanent pacemaker implant for many years and has been followed closely through my office. His most recent pacer check 08/04/2019 indicated his device was at the elective replacement indicator, so arrangements were made for his current replacement. DESCRIPTION OF PROCEDURE: With patient in the fasting state having received Ancef 2 grams IV premedication and having signed informed consent, he was taken to the operating theater. Numerous skin electrodes were applied to facilitate continuous electrocardiographic monitoring. The left subclavian region was prepped and draped in usual fashion. The skin over his old pacemaker was infiltrated with 1% Xylocaine and a 5 cm linear incision was made over his pulse generator. This was carefully explanted ([employer] - [place] XL [id number], serial number [id number]). This device had been in place since 08/24/2009. The old atrial and ventricular pacing leads were removed from the depleted pulse generator and tested independently. The ventricular lead ([employer] model number 1388T/58, serial number [id number]) measurements were: Stimulation threshold 0.8 V/0.4 ms/impedance 371 ohms. The capital R wave amplitude measured 9.7 mV. The atrial lead (model [employer] model number 1388T/52, serial number [id number]) measurements were: Stimulation threshold 1.0 V/0.4 ms/impedance 317 ohms. The P wave amplitude measured 1.5 mV. These old leads were then connected to a new dual chamber pulse generator ([employer] - Assurity MRI compatible model number KJ7077, serial number [id number]) and appropriate DDD pacing was documented. His old pacer pocket was thoroughly irrigated with bacitracin solution. His new device was then placed in the pocket. The subcutaneous tissues were approximated using a running chromic suture and the skin was closed using michelle. Dry dressing was applied. The patient was returned to recovery room in good condition. No apparent complications. Estimated blood loss less than 5 mL. He will be monitored briefly in the recovery room and be allowed to go home. DISCHARGE MEDICATIONS AND RECOMMENDATIONS: The patient will be able to resume his customary activities except for light activity with his left arm until his michelle are removed. We have also asked him to keep the dressing dry until his michelle are removed in my office 08/18/2019 at 12:45 p.m.. He will resume all of his customary medications, including warfarin 5 mg tablets as directed, diltiazem ER 120 mg twice a day, digoxin 0.25 mg by mouth daily, losartan 25 mg daily, eplerenone 25 mg daily, atorvastatin 40 mg nightly, Januvia 100 mg daily, topical diclofenac ointment as directed, ranitidine 150 mg by mouth daily, Ventolin inhaler 2 puffs four times a day as needed, and Tylenol 650 mg tablets 1 or 2 tablets by mouth four times a day as needed - discomfort. We have requested that he contact us promptly for any abnormal swelling, erythema or discharge.
[2019-08-08 11:45] VITALS: BP 120/56
--- NOTE | 2019-08-08 19:24 | ECGEPIP ---
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 No change from 05/28/18. Electronically Signed on 08-08-2019 19:24:20 EST by Abdelrahman Pineda
== END 2019-08-08 11:55 | disposition home or self-care (01) ==
LOC: M SDC 07:54
PROVIDERS: ATTEND Internal Medicine Cardiovascular Disease
DX: Z45.010 Encounter for checking and testing of cardiac pacemaker pulse generator [battery] (principal); I49.5 Sick sinus syndrome; I48.92 Unspecified atrial flutter; I10 Essential (primary) hypertension; R60.0 Localized edema; E11.9 Type 2 diabetes mellitus without complications; K21.9 Gastro-esophageal reflux disease without esophagitis; M19.90 Unspecified osteoarthritis, unspecified site; M54.2 Cervicalgia; J44.9 Chronic obstructive pulmonary disease, unspecified; G47.30 Sleep apnea, unspecified; Z87.891 Personal history of nicotine dependence; Z88.8 Allergy status to other drugs, medicaments and biological substances; Z79.899 Other long term (current) drug therapy; Z79.01 Long term (current) use of anticoagulants; Z79.2 Long term (current) use of antibiotics; Z95.5 Presence of coronary angioplasty implant and graft
CPT/HCPCS: 33228; 36415; 80053; 85027; 85610; 85730; 93005; C1785; J0690; J2250; J2370; J2405; J3010

== ENCOUNTER → 2019-08-16 | Outpatient (REF) | payer MEDICARE, BC ==
[~2019-08-16] MED LIST changes: -LR 1,000 ML IV ONE; -ceFAZolin SOD 2 GM in IV 1 EA IV ONE
[2019-08-16 13:09] LABS: HEMATOCRIT 36.4 % (42.0-52.0); HEMOGLOBIN 11.7 g/dl (13.5-17.5); MEAN CORPUSCULAR HEMOGLOBIN 28.3 pg (27.0-33.0); MEAN CORPUSCULAR HGB CONC 32.1 g/dl (32.0-36.5); MEAN CORPUSCULAR VOLUME 88.1 fl (80.0-96.0); PLATELET COUNT, AUTOMATED 231 10^3/uL (150-450); RED BLOOD COUNT 4.13 10^6/uL (4.30-6.10); WHITE BLOOD COUNT 8.9 10^3/uL (4.0-10.0)
[2019-08-16 13:28] LABS: MAU/CREAT RATIO 72.8 MCG/MG (0.0-30.0)
[2019-08-16 13:35] LABS: ALBUMIN 4.1 GM/DL (3.2-5.2); BILIRUBIN,TOTAL 1.2 MG/DL (0.2-1.0); CALCIUM LEVEL 8.9 MG/DL (8.8-10.2); CHOLESTEROL RISK RATIO 2.314 (<5); CREATININE FOR GFR 1.32 MG/DL (0.70-1.30); GLOMERULAR FILTRATION RATE 54.9 (>35); MAGNESIUM LEVEL 2.3 MG/DL (1.8-2.4); POTASSIUM SERUM 4.7 MEQ/L (3.5-5.1); TOTAL PROTEIN 7.9 GM/DL (6.4-8.2)
== END ==
LOC: M SFHCADAM 11:05
PROVIDERS: ATTEND Internal Medicine
DX: D64.9 Anemia, unspecified (principal); I11.0 Hypertensive heart disease with heart failure; E11.9 Type 2 diabetes mellitus without complications; E78.00 Pure hypercholesterolemia, unspecified

== ENCOUNTER → 2019-11-05 | Outpatient (CLI) | payer MEDICARE, BC ==
[~2019-11-05] MED LIST changes: -MAPA325T2 PO; +MAPA325T8 PO; -METF-791 PO; +METF-838 PO
== END ==
LOC: M LABSMTC 09:42
PROVIDERS: ATTEND Anesthesiology
DX: Z01.812 Encounter for preprocedural laboratory examination (principal); Z11.59 Encounter for screening for other viral diseases

== ENCOUNTER 2019-11-08 06:44 | Day surgery (SDC) | payer MEDICARE, BC ==
[~2019-11-08] VITALS: Ht 171.4 cm; Wt 73.8 kg
[2019-11-08] MEDS ORDERED: MIDAZOLAM INJ 2MG/2ML VIAL (J2250 PER 1MG) As Ordered ONE (07:31)
[2019-11-08] MEDS ORDERED: NS 1,000 ML IV ONE (08:00)
[2019-11-08] MEDS ORDERED: MIDAZOLAM INJ 2MG/2ML VIAL (J2250 PER 1MG) IV ONE (09:00)
[2019-11-08] MEDS ORDERED: MIDAZOLAM INJ 2MG/2ML VIAL (J2250 PER 1MG) IV PRN ×2 (09:00→09:30)
[2019-11-08 09:10] VITALS: BP 115/77
--- NOTE | 2019-11-08 09:45 | T-ECHO ---
DATE OF STUDY: 11/08/2019 REFERRING PHYSICIAN: Abdelrahman Pineda MD INDICATION: Atrial septal defect (patent foramen ovale), paravalvular mitral valve regurgitation. PREPROCEDURE DIAGNOSIS: Atrial septal defect (patent foramen ovale), paravalvular mitral valve regurgitation. POSTPROCEDURE DIAGNOSES: Atrial septal defect (patent foramen ovale), paravalvular mitral valve regurgitation. PRINCIPAL FINDINGS: Atrial septal defect (patent foramen ovale), paravalvular mitral valve regurgitation. PROCEDURE PERFORMED: Transesophageal echocardiogram with saline bubble study. PROCEDURE PERFORMED BY: Demond Vargas MD TOP SPOTTER: None. INTRAVENOUS (IV) SEDATION: Midazolam 4 mg IV. COMPLICATIONS: None. DESCRIPTION OF PROCEDURE: Procedure description: The patient received viscous lidocaine to gargle and swallow. He received a total of 4 mg of midazolam IV for conscious sedation. The patient tolerated the procedure well without any immediate complications. Esophageal intubation with the transesophageal echocardiogram probe was performed by Dr. Vargas without difficulty. Rhythm was predominantly AV sequential paced rhythm with frequent premature beats. The left ventricle appeared normal in size and systolic function. Left ventricle ejection fraction 60% by visual estimate. Mild paradoxical septal motion was present. Normal wall motion and wall thickening of the LV free wilson. Right ventricle appeared normal in size and systolic function. Left atrium appeared enlarged with enlarged soft atrial appendage. No mass or thrombi were seen within the left atrium or left atrial appendage. Pulmonary venous flow in the pulmonary veins was moderately difficult to visualize, and color flow Doppler was difficult. Presence of endocardial right atrial and right ventricle pacemaker leads. A 5-mm wide gap across the two portions of interatrial septum was present consistent with a moderate size patent foramen ovale. Bidirectional flow was present through the atrial septal defect with mostly left to right flow observed by color flow Doppler. With Valsalva maneuver release, a moderate amount of saline bubble shunting was seen from right atrium to left atrium via the patent foramen ovale (PFO). No pericardial effusion. Distal aorta and descending thoracic aorta showed mild atherosclerotic plaque. Aortic valve was three-cuspid and displayed mild focal thickening and focal calcific deposits. No aortic regurgitation. A bioprosthesis was present with normal-appearing cusps in the mitral position. There was partial dehiscence associated with moderate mitral regurgitation along the inferior and posterolateral regions of the filling ring. Tricuspid and pulmonic valves appeared unremarkable. No pulmonic regurgitation. Mild tricuspid regurgitation. CONCLUSIONS: 1. Moderate size patent foramen ovale with bidirectional shunting across the patent foramen ovale. Patent foramen ovale measured 5 mm in the width of the PFO track. Moderate amount of saline bubble contrast shunting from right atrium to left atrium with Valsalva maneuver release. 2. Mitral valve prosthesis in situ with partial dehiscence with a moderate amount of mitral regurgitation along the inferior and posterolateral regions of the filling ring. No mitral regurgitation of the bioprosthesis itself in the central portion. The leaflets of the bioprosthesis appeared normal. 3. Presence of atrial and ventricular endocardial pacing leads. 4. Left atrial dilatation with dilation of left atrial appendage. 5. Preserved overall LV systolic function. Left ventricular ejection fraction (LVEF) 65% by visual estimate. Mild paradoxical septal motion with normal regional wall motion and wall thickening elsewhere. 6. Mild aortic valve sclerosis of a three-cuspid aortic valve. No aortic regurgitation. 7. Mild atheroma in the distal aortic arch and descending thoracic aorta.
== END 2019-11-08 10:05 | disposition home or self-care (01) ==
LOC: M OPP 06:44
PROVIDERS: ATTEND Internal Medicine Cardiovascular Disease
DX: Q21.1 Atrial septal defect (principal); I34.0 Nonrheumatic mitral (valve) insufficiency
CPT/HCPCS: 93312; 93320; 93325; J2250

== ENCOUNTER 2019-11-28 11:25 | Emergency (ER) | payer MEDICARE, BC ==
[~2019-11-28] VITALS: Ht 170.2 cm; Wt 75.3 kg
[2019-11-28] MEDS ORDERED: FAMO1TAB25 PO (12:08)
[2019-11-28 12:10] LABS: BASO % 0.5 % (0.0-1.0); EOS # 0.1 10^3/uL (0.0-0.5); EOS % 1.3 % (0.0-3.0); HEMATOCRIT 33.9 % (42.0-52.0); HEMOGLOBIN 10.4 g/dl (13.5-17.5); LYMPH % 15.3 % (24.0-44.0); MEAN CORPUSCULAR HEMOGLOBIN 27.4 pg (27.0-33.0); MEAN CORPUSCULAR HGB CONC 30.7 g/dl (32.0-36.5); MEAN CORPUSCULAR VOLUME 89.2 fl (80.0-96.0); MONO # 0.6 10^3/uL (0.0-0.8); MONO % 9.3 % (0.0-5.0); NEUTROPHILS # 4.6 10^3/uL (1.5-8.5); NEUTROPHILS % 72.8 % (36.0-66.0); PLATELET COUNT, AUTOMATED 178 10^3/uL (150-450); WHITE BLOOD COUNT 6.4 10^3/uL (4.0-10.0)
[2019-11-28 12:44] LABS: ALBUMIN 3.6 GM/DL (3.2-5.2); ALT/SGPT 30 U/L (12-78); BILIRUBIN,DIRECT 0.4 MG/DL (0.0-0.2); BLOOD UREA NITROGEN 18 MG/DL (7-18); CALCIUM LEVEL 8.6 MG/DL (8.8-10.2); CARBON DIOXIDE LEVEL 29 MEQ/L (21-32); CHLORIDE LEVEL 106 MEQ/L (98-107); CK-MB VALUE MASS 2.3 NG/ML (<3.6); CPK CREATINE PHOSPHOKINASE 181 U/L (39-308); CREATININE FOR GFR 1.15 MG/DL (0.70-1.30); GLOMERULAR FILTRATION RATE > 60.0 (>35); GLUCOSE, FASTING 126 MG/DL (70-100); MB/CK RELATIVE INDEX 1.27 (< OR =4); NT-PRO BNP 536 PG/ML (<450); POTASSIUM SERUM 3.8 MEQ/L (3.5-5.1); SODIUM LEVEL 140 MEQ/L (136-145); TOTAL PROTEIN 7.6 GM/DL (6.4-8.2); TROPONIN I < 0.02 NG/ML (< 0.10)
[2019-11-28] MEDS ORDERED: ISOVUE-370 76% 100ML VIAL As Ordered ONE (13:21)
[2019-11-28 14:05] LABS: INR 3.3; PROTHROMBIN TIME 33.5 SECONDS (11.8-14.0)
--- NOTE | 2019-11-28 15:06 | REP ---
CHEST X-RAY: Two views. HISTORY: Dyspnea and cough. COMPARISON CHEST X-RAY: October 29, 2017. FINDINGS: Bipolar pacemaker remains in place in the right heart via the left side. Median sternotomy wires are noted. Heart size is unchanged and normal in size. Pulmonary vasculature is not increased. Right hemidiaphragm is slightly elevated unchanged. No significant bony abnormality. IMPRESSION: Pacemaker in place. Otherwise no acute disease. Electronically Signed by Robby Sosa MD 11/28/2019 06:14 P
[2019-11-28 15:15] VITALS: BP 143/71
--- NOTE | 2019-11-28 15:23 | REP ---
CT PULMONARY ANGIOGRAM: With IV contrast. HISTORY: Shortness of breath. COMPARISON STUDIES: No comparison study. CONTRAST DOSE: 75 mL of Isovue [address] TECHNIQUE: Helical scanning is acquired and overlapping 1.5 mm and contiguous 3 mm axial images are reformatted. In addition, maximum intensity projection and multiplanar re-formation images are generated in sagittal and coronal imaging projections. CT PULMONARY ANGIOGRAPHIC FINDINGS: There is good opacification in the pulmonary arterial tree. No filling defect or vessel cutoff is seen to suggest pulmonary embolism. There is no evidence of aortic aneurysm or dissection. There is some vascular calcification. A bipolar pacemaker is seen in the right heart. There is no evidence of pleural or pericardial effusion. No hilar or mediastinal mass is seen. No pulmonary parenchymal mass lesion is observed. There is bilateral lower lobe plate-like atelectasis versus fibrosis. Mild in degree. There are advanced emphysematous changes in the upper lobes bilaterally. No significant pulmonary nodule is appreciated. IMPRESSION: No CT evidence of pulmonary embolus. Advanced emphysematous changes. Bibasilar discoid atelectasis versus linear fibrosis. Pacemaker. No evidence of mass or adenopathy. Electronically Signed by Robby Sosa MD 11/28/2019 06:15 P
[2019-11-28] MEDS ORDERED: TORS10TA3 PO (15:30)
--- NOTE | 2019-11-28 21:36 | ECGEPIP ---
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
== END 2019-11-28 15:54 | disposition home or self-care (01) ==
LOC: M ED 11:25
DX: J44.9 Chronic obstructive pulmonary disease, unspecified (principal); I10 Essential (primary) hypertension; Z95.0 Presence of cardiac pacemaker; Z79.899 Other long term (current) drug therapy; Z79.01 Long term (current) use of anticoagulants; Z88.8 Allergy status to other drugs, medicaments and biological substances; Z87.891 Personal history of nicotine dependence
CPT/HCPCS: 36415; 71046; 71275; 80048; 80076; 82550; 82553; 83880; 84443; 84484; 85025; 85610; 93005; 93041; 94760; 99285; Q9967

== ENCOUNTER → 2019-12-06 | Outpatient (REF) | payer MEDICARE, BC ==
[~2019-12-06] MED LIST changes: -ASPI81TA85 PO; +ASPI81TA86 PO; +FAMO1TAB25 PO; +PANT40TA29 PO; -PANT40TA3 PO; +TORS10TA3 PO
[2019-12-06 18:40] LABS: APPEARANCE, URINE CLOUDY (CLEAR); BACTERIA, URINE AUTO 1+ (NEGATIVE); BILIRUBIN, URINE AUTO NEGATIVE (NEGATIVE); BLOOD, URINE BLOOD 3+ (NEGATIVE); COLOR, URINE YELLOW (YELLOW); GLUCOSE, URINE (UA) AUTO NEGATIVE (NEGATIVE); KETONE, URINE AUTO NEGATIVE (NEGATIVE); LEUKOCYTE ESTERASE, URINE AUTO 1+ (NEGATIVE); NITRITE, URINE AUTO POSITIVE (NEGATIVE); PROTEIN, URINE AUTO 1+ mg/dL (NEGATIVE); RBC, URINE AUTO TNTC /HPF (0-3); SPECIFIC GRAVITY URINE AUTO 1.015 (1.002-1.035); SQUAMOUS EPITHELIAL CELL UR AU 2 /HPF (0-6); UROBILINOGEN, URINE AUTO 0.2 mg/dL (0.0-2.0); WBC, URINE AUTO 53 /HPF (0-3)
== END ==
LOC: M SMT 16:47
PROVIDERS: ATTEND Nurse Practitioner Family
DX: R31.0 Gross hematuria (principal)

== ENCOUNTER → 2019-12-07 | Outpatient (REF) | payer MEDICARE, BC ==
[2019-12-07 17:39] LABS: CALCIUM LEVEL 8.5 MG/DL (8.8-10.2); CREATININE FOR GFR 1.24 MG/DL (0.70-1.30); POTASSIUM SERUM 3.9 MEQ/L (3.5-5.1)
== END ==
LOC: M LABSMT 15:32 → M SFHCADAM 15:34
PROVIDERS: ATTEND Urology
DX: R31.0 Gross hematuria (principal)

== ENCOUNTER → 2019-12-15 | Outpatient (REF) | payer MEDICARE, BC ==
[~2019-12-15] MED LIST changes: +ASPI81TA85 PO; -ASPI81TA86 PO; -PANT40TA29 PO; +PANT40TA3 PO
== END ==
LOC: M LAB REF 13:58
PROVIDERS: ATTEND Internal Medicine Cardiovascular Disease
DX: Z01.818 Encounter for other preprocedural examination (principal); Z11.59 Encounter for screening for other viral diseases

== ENCOUNTER → 2019-12-23 | Outpatient (REF) | payer MEDICARE, BC ==
[~2019-12-23] MED LIST changes: -ASPI81TA85 PO; +ASPI81TA86 PO; +PANT40TA29 PO; -PANT40TA3 PO
[2019-12-23 12:56] LABS: CREATININE FOR GFR 1.17 MG/DL (0.70-1.30); GLOMERULAR FILTRATION RATE > 60.0 (>35)
== END ==
LOC: M LABDRWAD 12:23
PROVIDERS: ATTEND Internal Medicine Cardiovascular Disease
DX: Z79.01 Long term (current) use of anticoagulants (principal)

== ENCOUNTER → 2019-12-29 | Outpatient (REF) | payer MEDICARE, BC ==
[2019-12-29 20:10] LABS: ALBUMIN 3.7 GM/DL (3.2-5.2); CALCIUM LEVEL 8.6 MG/DL (8.8-10.2); CREATININE FOR GFR 1.29 MG/DL (0.70-1.30); GLOMERULAR FILTRATION RATE 56.4 (>35); MAGNESIUM LEVEL 2.1 MG/DL (1.8-2.4); PHOSPHORUS LEVEL 3.3 MG/DL (2.5-4.9); POTASSIUM SERUM 4.6 MEQ/L (3.5-5.1)
== END ==
LOC: M LABDRWAD 17:26
PROVIDERS: ATTEND Internal Medicine
DX: I50.32 Chronic diastolic (congestive) heart failure (principal)

== ENCOUNTER → 2020-01-02 | Outpatient (CLI) | payer MEDICARE, BC ==
[~2020-01-02] MED LIST changes: +ISOVUE-370 76% 100ML VIAL As Ordered ONE
--- NOTE | 2020-01-02 10:37 | REP ---
Clinical: Gross hematuria. Technique: Axial precontrast, contrast enhanced, and delayed images of the abdomen and pelvis using 100 ml Isovue 370 intravenous contrast material with coronal and sagittal re-formations. Comparison: None. Findings: Evaluation of the urinary tract system demonstrates mild age-related renal changes including minimal cortical atrophy and minimal chronic-appearing perinephric stranding without hydroureteronephrosis, nephroureterolithiasis, significant cystic or mass lesion. Delayed images demonstrate normal appearance to the collecting system. Prostatomegaly is appreciated along with findings to suggest prior TURP. Liver, spleen, pancreas, gallbladder, and bilateral adrenal glands are normal. The enteric system is without obstruction or acute inflammatory process. Colonic and sigmoid diverticulosis noted without acute diverticulitis. Normal terminal ileum and appendix are identified in the right lower quadrant. 4 cm fat containing periumbilical hernia identified. Further evaluation of the pelvis is relatively unremarkable. No ascites. No free air. No adenopathy. Abdominal aorta and vasculature without aneurysm or dissection. Musculoskeletal structures demonstrate age-related changes without acute osseous abnormality. Lung bases demonstrate chronic changes. Impression: 1. Urinary tract system demonstrates chronic changes including evidence for prior TURP and mild prostatomegaly. No acute urinary tract pathology appreciated. No nephrolithiasis or hydronephrosis. 2. Diverticulosis. Electronically Signed by Priyank Mosqueda MD 01/02/2020 10:29 A
== END ==
LOC: M RAD 09:14
PROVIDERS: ATTEND Urology
DX: R31.0 Gross hematuria (principal); Z90.79 Acquired absence of other genital organ(s)
CPT/HCPCS: 74178; Q9967

== ENCOUNTER → 2020-01-13 | Outpatient (REF) | payer MEDICARE, BC ==
[~2020-01-13] MED LIST changes: -ISOVUE-370 76% 100ML VIAL As Ordered ONE
[2020-02-11 02:29] LABS: BASO % 0.3 % (0.0-1.0); EOS # 0.1 10^3/uL (0.0-0.5); EOS % 1.6 % (0.0-3.0); HEMATOCRIT 36.1 % (42.0-52.0); HEMOGLOBIN 10.8 g/dl (13.5-17.5); LYMPH # 1.4 10^3/uL (1.5-5.0); LYMPH % 15.6 % (24.0-44.0); MEAN CORPUSCULAR HEMOGLOBIN 27.3 pg (27.0-33.0); MEAN CORPUSCULAR HGB CONC 29.9 g/dl (32.0-36.5); MEAN CORPUSCULAR VOLUME 91.4 fl (80.0-96.0); MONO # 0.9 10^3/uL (0.0-0.8); MONO % 9.4 % (0.0-5.0); NEUTROPHILS # 6.5 10^3/uL (1.5-8.5); NEUTROPHILS % 72.4 % (36.0-66.0); PLATELET COUNT, AUTOMATED 207 10^3/uL (150-450); RED BLOOD COUNT 3.95 10^6/uL (4.30-6.10)
[2020-03-01 13:33] LABS: BLOOD UREA NITROGEN 18 MG/DL (7-18); CALCIUM LEVEL 8.6 MG/DL (8.8-10.2); CARBON DIOXIDE LEVEL 30 MEQ/L (21-32); CHLORIDE LEVEL 109 MEQ/L (98-107); CREATININE FOR GFR 1.21 MG/DL (0.70-1.30); GLOMERULAR FILTRATION RATE > 60.0 (>35); GLUCOSE, FASTING 79 MG/DL (70-100); POTASSIUM SERUM 4.2 MEQ/L (3.5-5.1); SODIUM LEVEL 142 MEQ/L (136-145)
== END ==
LOC: M LABDRWAD 11:50
PROVIDERS: ATTEND Internal Medicine Cardiovascular Disease
DX: I34.0 Nonrheumatic mitral (valve) insufficiency (principal); Q21.1 Atrial septal defect; T82.03XA Leakage of heart valve prosthesis, initial encounter

== ENCOUNTER → 2020-02-24 | Outpatient (REF) | payer MEDICARE, BC ==
[2020-02-24 13:56] LABS: BASO % 0.5 % (0.0-1.0); EOS # 0.3 10^3/uL (0.0-0.5); EOS % 4.3 % (0.0-3.0); HEMATOCRIT 29.9 % (42.0-52.0); HEMOGLOBIN 9.1 g/dl (13.5-17.5); LYMPH % 16.7 % (24.0-44.0); MEAN CORPUSCULAR HGB CONC 30.4 g/dl (32.0-36.5); MONO # 0.6 10^3/uL (0.0-0.8); MONO % 10.2 % (0.0-5.0); PLATELET COUNT, AUTOMATED 166 10^3/uL (150-450); RED BLOOD COUNT 3.25 10^6/uL (4.30-6.10)
[2020-02-24 14:17] LABS: ALBUMIN 4.1 GM/DL (3.2-5.2); BILIRUBIN,TOTAL 1.8 MG/DL (0.2-1.0); CALCIUM LEVEL 8.8 MG/DL (8.8-10.2); CREATININE FOR GFR 1.28 MG/DL (0.70-1.30); GLOMERULAR FILTRATION RATE 56.9 (>35); MAGNESIUM LEVEL 2.2 MG/DL (1.8-2.4); POTASSIUM SERUM 4.2 MEQ/L (3.5-5.1); TOTAL PROTEIN 7.9 GM/DL (6.4-8.2)
[2020-02-24 14:26] LABS: MALB URINE SIEMENS 56.4 MG/L; MAU/CREAT RATIO 36.1 MCG/MG (0.0-30.0)
== END ==
LOC: M LABDRWAD 12:23
PROVIDERS: ATTEND Internal Medicine
DX: I11.0 Hypertensive heart disease with heart failure (principal); E11.9 Type 2 diabetes mellitus without complications; D64.9 Anemia, unspecified

== ENCOUNTER → 2020-03-02 | Outpatient (REF) | payer MEDICARE, BC ==
[2020-03-02 15:00] LABS: MAGNESIUM LEVEL 2.4 MG/DL (1.8-2.4)
== END ==
LOC: M LABDRWAD 13:14
PROVIDERS: ATTEND Internal Medicine Cardiovascular Disease
DX: I50.32 Chronic diastolic (congestive) heart failure (principal)

== ENCOUNTER → 2020-04-09 | Outpatient (REF) | payer MEDICARE, BC ==
[2020-04-09 13:18] LABS: BASO % 0.5 % (0.0-1.0); EOS # 0.2 10^3/uL (0.0-0.5); EOS % 4.1 % (0.0-3.0); HEMATOCRIT 34.1 % (42.0-52.0); HEMOGLOBIN 10.1 g/dl (13.5-17.5); LYMPH # 0.9 10^3/uL (1.5-5.0); LYMPH % 16.4 % (24.0-44.0); MEAN CORPUSCULAR HEMOGLOBIN 26.8 pg (27.0-33.0); MEAN CORPUSCULAR HGB CONC 29.6 g/dl (32.0-36.5); MEAN CORPUSCULAR VOLUME 90.5 fl (80.0-96.0); MONO # 0.7 10^3/uL (0.0-0.8); MONO % 11.8 % (0.0-5.0); NEUTROPHILS # 3.7 10^3/uL (1.5-8.5); NEUTROPHILS % 66.7 % (36.0-66.0); PLATELET COUNT, AUTOMATED 176 10^3/uL (150-450); RED BLOOD COUNT 3.77 10^6/uL (4.30-6.10); WHITE BLOOD COUNT 5.6 10^3/uL (4.0-10.0)
== END ==
LOC: M LABDRWAD 12:47
PROVIDERS: ATTEND Internal Medicine
DX: D64.9 Anemia, unspecified (principal)

== ENCOUNTER → 2020-05-29 | Outpatient (REF) | payer MEDICARE, BC ==
[2020-05-29 13:31] LABS: BASO % 0.6 % (0.0-1.0); EOS # 0.2 10^3/uL (0.0-0.5); EOS % 3.7 % (0.0-3.0); HEMATOCRIT 35.7 % (42.0-52.0); LYMPH # 1.1 10^3/uL (1.5-5.0); LYMPH % 18.2 % (24.0-44.0); MEAN CORPUSCULAR HEMOGLOBIN 27.8 pg (27.0-33.0); MEAN CORPUSCULAR HGB CONC 30.8 g/dl (32.0-36.5); MEAN CORPUSCULAR VOLUME 90.2 fl (80.0-96.0); MONO # 0.6 10^3/uL (0.0-0.8); MONO % 9.3 % (0.0-5.0); NEUTROPHILS # 4.2 10^3/uL (1.5-8.5); NEUTROPHILS % 67.7 % (36.0-66.0); PLATELET COUNT, AUTOMATED 195 10^3/uL (150-450); RED BLOOD COUNT 3.96 10^6/uL (4.30-6.10); WHITE BLOOD COUNT 6.2 10^3/uL (4.0-10.0)
[2020-05-29 13:42] LABS: ALBUMIN 3.8 GM/DL (3.2-5.2); BILIRUBIN,TOTAL 1.4 MG/DL (0.2-1.0); CALCIUM LEVEL 9.3 MG/DL (8.8-10.2); CREATININE FOR GFR 1.37 MG/DL (0.70-1.30); GLOMERULAR FILTRATION RATE 52.6 (>35); POTASSIUM SERUM 4.2 MEQ/L (3.5-5.1); TOTAL PROTEIN 7.8 GM/DL (6.4-8.2)
== END ==
LOC: M LABDRWAD 12:26
PROVIDERS: ATTEND Internal Medicine Cardiovascular Disease
DX: I50.32 Chronic diastolic (congestive) heart failure (principal); Z79.01 Long term (current) use of anticoagulants

== ENCOUNTER → 2020-07-19 | Outpatient (REF) | payer MEDICARE, BC ==
[2020-07-19 14:28] LABS: BASO % 0.7 % (0.0-1.0); EOS # 0.2 10^3/uL (0.0-0.5); EOS % 2.9 % (0.0-3.0); HEMATOCRIT 35.4 % (42.0-52.0); LYMPH % 17.9 % (24.0-44.0); MEAN CORPUSCULAR HEMOGLOBIN 27.2 pg (27.0-33.0); MEAN CORPUSCULAR HGB CONC 31.1 g/dl (32.0-36.5); MEAN CORPUSCULAR VOLUME 87.6 fl (80.0-96.0); MONO # 0.6 10^3/uL (0.0-0.8); NEUTROPHILS # 3.9 10^3/uL (1.5-8.5); PLATELET COUNT, AUTOMATED 159 10^3/uL (150-450); RED BLOOD COUNT 4.04 10^6/uL (4.30-6.10); WHITE BLOOD COUNT 5.8 10^3/uL (4.0-10.0)
[2020-07-19 14:54] LABS: ALBUMIN 3.6 GM/DL (3.2-5.2); BILIRUBIN,TOTAL 1.4 MG/DL (0.2-1.0); CALCIUM LEVEL 8.9 MG/DL (8.8-10.2); CHOLESTEROL RISK RATIO 1.652 (<5); CREATININE FOR GFR 1.37 MG/DL (0.70-1.30); GLOMERULAR FILTRATION RATE 52.4 (>35); MAGNESIUM LEVEL 1.9 MG/DL (1.8-2.4); POTASSIUM SERUM 4.2 MEQ/L (3.5-5.1); TOTAL PROTEIN 7.5 GM/DL (6.4-8.2)
[2020-07-19 15:05] LABS: MALB URINE SIEMENS 84.3 MG/L; MAU/CREAT RATIO 52.6 MCG/MG (0.0-30.0)
[2020-07-19 18:43] LABS: HEMOGLOBIN A1c 5.4 %
== END ==
LOC: M SFHCPLAZ 09:14 → M SFHCADAM 09:17
PROVIDERS: ATTEND Internal Medicine
DX: I11.0 Hypertensive heart disease with heart failure (principal); E11.9 Type 2 diabetes mellitus without complications; D64.9 Anemia, unspecified; E78.00 Pure hypercholesterolemia, unspecified; Z11.59 Encounter for screening for other viral diseases; I50.9 Heart failure, unspecified
CPT/HCPCS: 80053; 80061; 82043; 83036; 83735; 85025; G0472

== ENCOUNTER → 2020-12-25 | Outpatient (REF) | payer MEDICARE, BC ==
[~2020-12-25] MED LIST changes: +FAMO10TA50 PO; -FAMO1TAB25 PO
[2020-12-25 13:02] LABS: BASO # 0.1 10^3/uL (0.0-0.2); BASO % 0.7 % (0.0-1.0); EOS # 0.2 10^3/uL (0.0-0.5); EOS % 2.1 % (0.0-3.0); HEMATOCRIT 37.8 % (42.0-52.0); HEMOGLOBIN 11.8 g/dl (13.5-17.5); LYMPH # 1.1 10^3/uL (1.5-5.0); LYMPH % 14.8 % (24.0-44.0); MEAN CORPUSCULAR HEMOGLOBIN 28.8 pg (27.0-33.0); MEAN CORPUSCULAR HGB CONC 31.2 g/dl (32.0-36.5); MEAN CORPUSCULAR VOLUME 92.2 fl (80.0-96.0); MONO # 0.7 10^3/uL (0.0-0.8); MONO % 10.2 % (2.0-8.0); NEUTROPHILS # 5.1 10^3/uL (1.5-8.5); NEUTROPHILS % 71.6 % (36.0-66.0); PLATELET COUNT, AUTOMATED 152 10^3/uL (150-450); WHITE BLOOD COUNT 7.1 10^3/uL (4.0-10.0)
[2020-12-25 13:28] LABS: ALBUMIN 3.5 GM/DL (3.2-5.2); CALCIUM LEVEL 8.6 MG/DL (8.8-10.2); CREATININE FOR GFR 1.26 MG/DL (0.70-1.30); GLOMERULAR FILTRATION RATE 57.8 (>35); PHOSPHORUS LEVEL 3.3 MG/DL (2.5-4.9); POTASSIUM SERUM 4.1 MEQ/L (3.5-5.1)
== END ==
LOC: M LABDRWAD 12:36
PROVIDERS: ATTEND Internal Medicine Cardiovascular Disease
DX: I50.32 Chronic diastolic (congestive) heart failure (principal); I48.21 Permanent atrial fibrillation; I34.0 Nonrheumatic mitral (valve) insufficiency

== ENCOUNTER → 2020-12-27 | Outpatient (CLI) | payer MEDICARE, BC ==
--- NOTE | 2020-12-27 12:19 | REP ---
INDICATION: COPD,PULMONARY FIBROSIS. COMPARISON: Comparison chest x-ray November 28, 2019. TECHNIQUE: Two views.. FINDINGS: A bipolar pacemaker remains in the right heart view of the left side. Median sternotomy wires are noted. Heart is mildly enlarged. Cardiothoracic ratio is 51.2%. Pulmonary vasculature is cephalized. There is no evidence of pleural effusion or pulmonary edema. No infiltrate is seen. There is linear fibrosis in the right lower lobe unchanged. No acute bony abnormality. IMPRESSION: Pacemaker and cardiomegaly. Vascular cephalization. Linear fibrosis right base. Otherwise no acute disease.. <Electronically signed by Glen Sosa > 12/27/20 [id number]
== END ==
LOC: M PLAIMG 11:41
PROVIDERS: ATTEND Internal Medicine Cardiovascular Disease
DX: I50.32 Chronic diastolic (congestive) heart failure (principal); Z95.0 Presence of cardiac pacemaker

== ENCOUNTER → 2021-01-17 | Outpatient (REF) | payer MEDICARE, BC ==
[~2021-01-17] MED LIST changes: +LOSA25TA13 PO; -LOSA25TA14 PO; +POTA-149 PO; -POTA10TA16 PO
[2021-01-17 12:30] LABS: BASO % 0.7 % (0.0-1.0); EOS # 0.2 10^3/uL (0.0-0.5); EOS % 2.7 % (0.0-3.0); HEMATOCRIT 37.7 % (42.0-52.0); HEMOGLOBIN 12.1 g/dl (13.5-17.5); LYMPH % 17.9 % (24.0-44.0); MEAN CORPUSCULAR HGB CONC 32.1 g/dl (32.0-36.5); MEAN CORPUSCULAR VOLUME 93.3 fl (80.0-96.0); MONO # 0.6 10^3/uL (0.0-0.8); MONO % 10.6 % (2.0-8.0); NEUTROPHILS # 3.7 10^3/uL (1.5-8.5); NEUTROPHILS % 67.4 % (36.0-66.0); PLATELET COUNT, AUTOMATED 124 10^3/uL (150-450); RED BLOOD COUNT 4.04 10^6/uL (4.30-6.10); WHITE BLOOD COUNT 5.5 10^3/uL (4.0-10.0)
[2021-01-17 13:05] LABS: ALBUMIN 3.5 GM/DL (3.2-5.2); ALT/SGPT 29 U/L (12-78); BILIRUBIN,TOTAL 1.2 MG/DL (0.2-1.0); BLOOD UREA NITROGEN 23 MG/DL (7-18); CALCIUM LEVEL 8.5 MG/DL (8.8-10.2); CARBON DIOXIDE LEVEL 25 MEQ/L (21-32); CHLORIDE LEVEL 112 MEQ/L (98-107); CREATININE FOR GFR 1.15 MG/DL (0.70-1.30); GLOMERULAR FILTRATION RATE > 60.0 (>35); GLUCOSE, FASTING 95 MG/DL (70-100); MAGNESIUM LEVEL 2.2 MG/DL (1.8-2.4); POTASSIUM SERUM 4.2 MEQ/L (3.5-5.1); SODIUM LEVEL 143 MEQ/L (136-145); TOTAL PROTEIN 7.3 GM/DL (6.4-8.2)
== END ==
LOC: M SFHCADAM 08:45
PROVIDERS: ATTEND Internal Medicine
DX: D64.9 Anemia, unspecified (principal); I11.0 Hypertensive heart disease with heart failure; I50.32 Chronic diastolic (congestive) heart failure

== ENCOUNTER → 2021-01-17 | Outpatient (REF) | payer MEDICARE, BC ==
[~2021-01-17] MED LIST changes: -LOSA25TA13 PO; +LOSA25TA14 PO; -POTA-149 PO; +POTA10TA16 PO
[2021-01-17 16:10] LABS: BLOOD UREA NITROGEN 23 MG/DL (7-18); CREATININE FOR GFR 1.15 MG/DL (0.70-1.30); GLOMERULAR FILTRATION RATE > 60.0 (>35); GLUCOSE, FASTING 95 MG/DL (70-100)
[2021-01-17 16:11] LABS: ALBUMIN 3.5 GM/DL (3.2-5.2); CALCIUM LEVEL 8.5 MG/DL (8.8-10.2); CARBON DIOXIDE LEVEL 25 mmol/L (20-29); CHLORIDE LEVEL 112 MEQ/L (98-107); NT-PRO BNP 1489 PG/ML (<450); PHOSPHORUS LEVEL 3.1 MG/DL (2.5-4.9); POTASSIUM SERUM 4.2 MEQ/L (3.5-5.1); SODIUM LEVEL 143 MEQ/L (136-145)
== END ==
LOC: M LABDRWAD 15:28
PROVIDERS: ATTEND Internal Medicine Cardiovascular Disease
DX: I50.32 Chronic diastolic (congestive) heart failure (principal)

== ENCOUNTER → 2021-04-16 | Outpatient (REF) | payer MEDICARE, BC ==
[2021-04-16 13:46] LABS: BASO % 0.6 % (0.0-1.0); EOS # 0.2 10^3/uL (0.0-0.5); EOS % 3.8 % (0.0-3.0); HEMATOCRIT 36.5 % (42.0-52.0); HEMOGLOBIN 11.6 g/dl (13.5-17.5); LYMPH # 0.9 10^3/uL (1.5-5.0); LYMPH % 14.6 % (24.0-44.0); MEAN CORPUSCULAR HEMOGLOBIN 29.7 pg (27.0-33.0); MEAN CORPUSCULAR HGB CONC 31.8 g/dl (32.0-36.5); MEAN CORPUSCULAR VOLUME 93.6 fl (80.0-96.0); MONO # 0.6 10^3/uL (0.0-0.8); MONO % 9.4 % (2.0-8.0); NEUTROPHILS # 4.5 10^3/uL (1.5-8.5); NEUTROPHILS % 71.1 % (36.0-66.0); PLATELET COUNT, AUTOMATED 127 10^3/uL (150-450); WHITE BLOOD COUNT 6.3 10^3/uL (4.0-10.0)
[2021-04-16 14:23] LABS: ALBUMIN 3.3 GM/DL (3.2-5.2); BILIRUBIN,TOTAL 1.4 MG/DL (0.2-1.0); CREATININE FOR GFR 1.66 MG/DL (0.70-1.30); POTASSIUM SERUM 4.4 MEQ/L (3.5-5.1); TOTAL PROTEIN 7.4 GM/DL (6.4-8.2)
== END ==
LOC: M LABDRWAD 12:26
PROVIDERS: ATTEND Internal Medicine Cardiovascular Disease
DX: I50.32 Chronic diastolic (congestive) heart failure (principal); I48.21 Permanent atrial fibrillation; I34.0 Nonrheumatic mitral (valve) insufficiency

== ENCOUNTER → 2021-07-15 | Outpatient (REF) | payer MEDICARE, BC ==
[~2021-07-15] MED LIST changes: +LOSA25TA13 PO; -LOSA25TA14 PO; +POTA-149 PO; -POTA10TA16 PO
== END ==
LOC: M SFHCADAM 12:19
PROVIDERS: ATTEND Internal Medicine
DX: I11.0 Hypertensive heart disease with heart failure (principal); E11.9 Type 2 diabetes mellitus without complications; E78.00 Pure hypercholesterolemia, unspecified; D64.9 Anemia, unspecified

== ENCOUNTER → 2021-08-05 | Outpatient (REF) | payer MEDICARE, BC ==
[2021-08-05 12:42] LABS: BASO % 0.4 % (0.0-1.0); EOS # 0.1 10^3/uL (0.0-0.5); EOS % 1.8 % (0.0-3.0); HEMOGLOBIN 10.9 g/dl (13.5-17.5); LYMPH # 0.8 10^3/uL (1.5-5.0); LYMPH % 11.8 % (24.0-44.0); MEAN CORPUSCULAR HEMOGLOBIN 29.7 pg (27.0-33.0); MEAN CORPUSCULAR HGB CONC 31.1 g/dl (32.0-36.5); MEAN CORPUSCULAR VOLUME 95.4 fl (80.0-96.0); MONO # 0.7 10^3/uL (0.0-0.8); MONO % 10.3 % (2.0-8.0); NEUTROPHILS % 74.5 % (36.0-66.0); PLATELET COUNT, AUTOMATED 132 10^3/uL (150-450); RED BLOOD COUNT 3.67 10^6/uL (4.30-6.10); WHITE BLOOD COUNT 6.7 10^3/uL (4.0-10.0)
[2021-08-05 13:10] LABS: ALBUMIN 3.5 GM/DL (3.2-5.2); CALCIUM LEVEL 8.8 MG/DL (8.8-10.2); CREATININE FOR GFR 1.38 MG/DL (0.70-1.30); GLOMERULAR FILTRATION RATE 51.9 (>35)
== END ==
LOC: M LABDRWAD 12:14
PROVIDERS: ATTEND Internal Medicine Cardiovascular Disease
DX: I11.0 Hypertensive heart disease with heart failure (principal); I50.32 Chronic diastolic (congestive) heart failure

== ENCOUNTER → 2021-10-28 | Outpatient (CLI) | payer MEDICARE, BC ==
[2021-10-28 13:41] LABS: BASO # 0.1 10^3/uL (0.0-0.2); BASO % 0.8 % (0.0-1.0); EOS # 0.2 10^3/uL (0.0-0.5); EOS % 3.3 % (0.0-3.0); HEMATOCRIT 34.1 % (42.0-52.0); HEMOGLOBIN 10.8 g/dl (13.5-17.5); LYMPH # 0.7 10^3/uL (1.5-5.0); LYMPH % 11.1 % (24.0-44.0); MEAN CORPUSCULAR HEMOGLOBIN 29.8 pg (27.0-33.0); MEAN CORPUSCULAR HGB CONC 31.7 g/dl (32.0-36.5); MEAN CORPUSCULAR VOLUME 94.2 fl (80.0-96.0); MONO # 0.8 10^3/uL (0.0-0.8); MONO % 11.4 % (2.0-8.0); NEUTROPHILS # 4.8 10^3/uL (1.5-8.5); NEUTROPHILS % 72.8 % (36.0-66.0); PLATELET COUNT, AUTOMATED 134 10^3/uL (150-450); RED BLOOD COUNT 3.62 10^6/uL (4.30-6.10); WHITE BLOOD COUNT 6.6 10^3/uL (4.0-10.0)
[2021-10-28 14:02] LABS: ALBUMIN 3.4 GM/DL (3.2-5.2); BILIRUBIN,TOTAL 1.5 MG/DL (0.2-1.0); CALCIUM LEVEL 9.4 MG/DL (8.8-10.2); CREATININE FOR GFR 1.4 MG/DL (0.70-1.30); POTASSIUM SERUM 4.1 MEQ/L (3.5-5.1); TOTAL PROTEIN 7.4 GM/DL (6.4-8.2)
== END ==
LOC: M ADAMS 11:32
PROVIDERS: ATTEND Internal Medicine Cardiovascular Disease
DX: I50.32 Chronic diastolic (congestive) heart failure (principal)

== ENCOUNTER → 2022-01-10 | Outpatient (REF) | payer MEDICARE, BC ==
[2022-01-10 10:45] LABS: BASO % 0.4 % (0.0-1.0); EOS # 0.2 10^3/uL (0.0-0.5); EOS % 2.8 % (0.0-3.0); HEMATOCRIT 29.8 % (42.0-52.0); HEMOGLOBIN 9.3 g/dl (13.5-17.5); LYMPH # 0.8 10^3/uL (1.5-5.0); LYMPH % 13.5 % (24.0-44.0); MEAN CORPUSCULAR HEMOGLOBIN 30.1 pg (27.0-33.0); MEAN CORPUSCULAR HGB CONC 31.2 g/dl (32.0-36.5); MEAN CORPUSCULAR VOLUME 96.4 fl (80.0-96.0); MONO # 0.6 10^3/uL (0.0-0.8); MONO % 10.9 % (2.0-8.0); NEUTROPHILS # 4.1 10^3/uL (1.5-8.5); NEUTROPHILS % 71.2 % (36.0-66.0); PLATELET COUNT, AUTOMATED 137 10^3/uL (150-450); RED BLOOD COUNT 3.09 10^6/uL (4.30-6.10); WHITE BLOOD COUNT 5.7 10^3/uL (4.0-10.0)
[2022-01-10 11:02] LABS: ALBUMIN 3.3 GM/DL (3.2-5.2); BILIRUBIN,TOTAL 1.4 MG/DL (0.2-1.0); CALCIUM LEVEL 8.7 MG/DL (8.8-10.2); CREATININE FOR GFR 1.35 MG/DL (0.70-1.30); GLOMERULAR FILTRATION RATE 53.2 (>35); MAGNESIUM LEVEL 2.2 MG/DL (1.8-2.4); POTASSIUM SERUM 4.3 MEQ/L (3.5-5.1); TOTAL PROTEIN 7.1 GM/DL (6.4-8.2)
[2022-01-10 11:04] LABS: HEMOGLOBIN A1c 4.6 %
== END ==
LOC: M SFHCADAM 07:59
PROVIDERS: ATTEND Internal Medicine
DX: I11.0 Hypertensive heart disease with heart failure (principal); E11.9 Type 2 diabetes mellitus without complications; D64.9 Anemia, unspecified

== ENCOUNTER → 2022-02-03 | Outpatient (CLI) | payer MEDICARE, BC ==
[2022-02-03 14:07] LABS: BASO % 0.4 % (0.0-1.0); EOS # 0.2 10^3/uL (0.0-0.5); EOS % 1.9 % (0.0-3.0); HEMATOCRIT 31.6 % (42.0-52.0); HEMOGLOBIN 9.7 g/dl (13.5-17.5); LYMPH # 0.7 10^3/uL (1.5-5.0); LYMPH % 8.8 % (24.0-44.0); MEAN CORPUSCULAR HEMOGLOBIN 29.2 pg (27.0-33.0); MEAN CORPUSCULAR HGB CONC 30.7 g/dl (32.0-36.5); MEAN CORPUSCULAR VOLUME 95.2 fl (80.0-96.0); MONO # 0.9 10^3/uL (0.0-0.8); MONO % 11.5 % (2.0-8.0); NEUTROPHILS % 76.5 % (36.0-66.0); PLATELET COUNT, AUTOMATED 159 10^3/uL (150-450); RED BLOOD COUNT 3.32 10^6/uL (4.30-6.10); WHITE BLOOD COUNT 7.8 10^3/uL (4.0-10.0)
[2022-02-03 15:37] LABS: ALBUMIN 3.2 GM/DL (3.2-5.2); BILIRUBIN,TOTAL 1.4 MG/DL (0.2-1.0); CALCIUM LEVEL 8.3 MG/DL (8.8-10.2); CREATININE FOR GFR 1.39 MG/DL (0.70-1.30); GLOMERULAR FILTRATION RATE 51.5 (>35); POTASSIUM SERUM 4.5 MEQ/L (3.5-5.1); TOTAL PROTEIN 7.1 GM/DL (6.4-8.2)
== END ==
LOC: M ADAMS 09:14
PROVIDERS: ATTEND Internal Medicine Cardiovascular Disease
DX: I50.32 Chronic diastolic (congestive) heart failure (principal); I34.0 Nonrheumatic mitral (valve) insufficiency; I11.0 Hypertensive heart disease with heart failure

== ENCOUNTER → 2022-04-21 | Outpatient (CLI) | payer MEDICARE, BC ==
[2022-04-21 16:04] LABS: ALBUMIN 3.2 GM/DL (3.2-5.2); CALCIUM LEVEL 8.7 MG/DL (8.8-10.2); CREATININE FOR GFR 1.34 MG/DL (0.70-1.30); GLOMERULAR FILTRATION RATE 53.7 (>35); PHOSPHORUS LEVEL 3.1 MG/DL (2.5-4.9); POTASSIUM SERUM 4.5 MEQ/L (3.5-5.1)
== END ==
LOC: M LABDRWAD 09:45
PROVIDERS: ATTEND Internal Medicine Cardiovascular Disease
DX: I50.33 Acute on chronic diastolic (congestive) heart failure (principal)

== ENCOUNTER → 2022-05-21 | Outpatient (REF) | payer MEDICARE, BC ==
[2022-05-21 15:16] LABS: BASO % 0.4 % (0.0-1.0); EOS # 0.2 10^3/uL (0.0-0.5); EOS % 2.5 % (0.0-3.0); HEMATOCRIT 33.2 % (42.0-52.0); HEMOGLOBIN 10.3 g/dl (13.5-17.5); LYMPH # 0.5 10^3/uL (1.5-5.0); LYMPH % 7.9 % (24.0-44.0); MEAN CORPUSCULAR HEMOGLOBIN 30.2 pg (27.0-33.0); MEAN CORPUSCULAR VOLUME 97.4 fl (80.0-96.0); MONO # 0.8 10^3/uL (0.0-0.8); MONO % 11.7 % (2.0-8.0); NEUTROPHILS # 5.2 10^3/uL (1.5-8.5); NEUTROPHILS % 76.6 % (36.0-66.0); PLATELET COUNT, AUTOMATED 125 10^3/uL (150-450); RED BLOOD COUNT 3.41 10^6/uL (4.30-6.10); WHITE BLOOD COUNT 6.8 10^3/uL (4.0-10.0)
[2022-05-21 15:35] LABS: BILIRUBIN,TOTAL 1.5 MG/DL (0.3-1.2); CALCIUM LEVEL 8.7 MG/DL (8.3-10.6); CREATININE FOR GFR 1.39 MG/DL (0.70-1.30); GLOMERULAR FILTRATION RATE 51.5 (>35); POTASSIUM SERUM 4.5 MMOL/L (3.5-5.1); TOTAL PROTEIN 6.9 G/DL (5.7-8.2)
== END ==
LOC: M LABDRWAD 13:06
PROVIDERS: ATTEND Internal Medicine Cardiovascular Disease
DX: I50.32 Chronic diastolic (congestive) heart failure (principal)

== ENCOUNTER → 2022-06-05 | Outpatient (CLI) | payer MEDICARE, BC | LOC: M ADAMS 10:28 | PROVIDERS: ATTEND Nurse Practitioner Adult Health | DX: R06.02 Shortness of breath (principal) ==

== ENCOUNTER → 2022-06-30 | Outpatient (CLI) | payer MEDICARE, BC | LOC: M ADAMS 11:33 | PROVIDERS: ATTEND Nurse Practitioner Adult Health | DX: R07.81 Pleurodynia (principal) ==

== ENCOUNTER → 2022-07-16 | Outpatient (REF) | payer MEDICARE, BC ==
[2022-07-16 14:46] LABS: HEMATOCRIT 33.1 % (42.0-52.0); HEMOGLOBIN 10.4 g/dl (13.5-17.5); MEAN CORPUSCULAR HEMOGLOBIN 30.5 pg (27.0-33.0); MEAN CORPUSCULAR HGB CONC 31.4 g/dl (32.0-36.5); MEAN CORPUSCULAR VOLUME 97.1 fl (80.0-96.0); PLATELET COUNT, AUTOMATED 122 10^3/uL (150-450); RED BLOOD COUNT 3.41 10^6/uL (4.30-6.10); WHITE BLOOD COUNT 7.7 10^3/uL (4.0-10.0)
[2022-07-16 15:26] LABS: ALBUMIN 3.3 G/DL (3.2-5.2); BILIRUBIN,TOTAL 2.2 MG/DL (0.3-1.2); CALCIUM LEVEL 8.5 MG/DL (8.3-10.6); CHOLESTEROL RISK RATIO 1.83 (<5); CREATININE FOR GFR 1.41 MG/DL (0.70-1.30); GLOMERULAR FILTRATION RATE 50.5 (>35); HDL CHOLESTEROL 45.3 MG/DL (>40); LDL CHOLESTEROL 28.1 MG/DL (<100); POTASSIUM SERUM 4.6 MMOL/L (3.5-5.1); TOTAL PROTEIN 7.3 G/DL (5.7-8.2)
[2022-07-16 15:44] LABS: HEMOGLOBIN A1c 4.7 % (4.0-6.0)
== END ==
LOC: M SFHCADAM 09:31
PROVIDERS: ATTEND Nurse Practitioner Adult Health
DX: D64.9 Anemia, unspecified (principal); I50.32 Chronic diastolic (congestive) heart failure; E11.9 Type 2 diabetes mellitus without complications

== ENCOUNTER → 2022-07-16 | Outpatient (CLI) | payer MEDICARE, BC ==
[2022-07-16 14:46] LABS: BASO % 0.1 % (0.0-1.0); HEMATOCRIT 32.6 % (42.0-52.0); HEMOGLOBIN 10.4 g/dl (13.5-17.5); LYMPH # 0.3 10^3/uL (1.5-5.0); LYMPH % 3.5 % (24.0-44.0); MEAN CORPUSCULAR HEMOGLOBIN 30.8 pg (27.0-33.0); MEAN CORPUSCULAR HGB CONC 31.9 g/dl (32.0-36.5); MEAN CORPUSCULAR VOLUME 96.4 fl (80.0-96.0); MONO # 0.6 10^3/uL (0.0-0.8); MONO % 7.3 % (2.0-8.0); NEUTROPHILS # 6.6 10^3/uL (1.5-8.5); NEUTROPHILS % 86.4 % (36.0-66.0); PLATELET COUNT, AUTOMATED 132 10^3/uL (150-450); RED BLOOD COUNT 3.38 10^6/uL (4.30-6.10); WHITE BLOOD COUNT 7.6 10^3/uL (4.0-10.0)
[2022-07-16 15:22] LABS: ALBUMIN 3.3 G/DL (3.2-5.2); CALCIUM LEVEL 8.5 MG/DL (8.3-10.6); CREATININE FOR GFR 1.42 MG/DL (0.70-1.30); GLOMERULAR FILTRATION RATE 50.1 (>35); PHOSPHORUS LEVEL 3.5 MG/DL (2.4-5.1); POTASSIUM SERUM 4.7 MMOL/L (3.5-5.1)
== END ==
LOC: M LABDRWAD 09:35
PROVIDERS: ATTEND Internal Medicine Cardiovascular Disease
DX: I50.32 Chronic diastolic (congestive) heart failure (principal); I11.0 Hypertensive heart disease with heart failure; I34.0 Nonrheumatic mitral (valve) insufficiency; I48.21 Permanent atrial fibrillation

== ENCOUNTER → 2022-07-31 | Outpatient (REF) | payer MEDICARE, BC ==
[2022-08-01 14:01] LABS: ALBUMIN 3.3 G/DL (3.2-5.2); CALCIUM LEVEL 8.6 MG/DL (8.3-10.6); CREATININE FOR GFR 1.27 MG/DL (0.70-1.30); PHOSPHORUS LEVEL 3.3 MG/DL (2.4-5.1); POTASSIUM SERUM 4.2 MMOL/L (3.5-5.1)
[2022-08-01 14:16] LABS: BASO % 0.6 % (0.0-1.0); EOS # 0.1 10^3/uL (0.0-0.5); EOS % 1.8 % (0.0-3.0); HEMATOCRIT 35.3 % (42.0-52.0); HEMOGLOBIN 10.7 g/dl (13.5-17.5); LYMPH # 0.6 10^3/uL (1.5-5.0); LYMPH % 8.3 % (24.0-44.0); MEAN CORPUSCULAR HEMOGLOBIN 29.7 pg (27.0-33.0); MEAN CORPUSCULAR HGB CONC 30.3 g/dl (32.0-36.5); MEAN CORPUSCULAR VOLUME 98.1 fl (80.0-96.0); MONO # 0.7 10^3/uL (0.0-0.8); MONO % 9.9 % (2.0-8.0); NEUTROPHILS # 5.7 10^3/uL (1.5-8.5); NEUTROPHILS % 78.6 % (36.0-66.0); PLATELET COUNT, AUTOMATED 131 10^3/uL (150-450); WHITE BLOOD COUNT 7.3 10^3/uL (4.0-10.0)
== END ==
LOC: M LABDRWAD 12:30
PROVIDERS: ATTEND Internal Medicine Cardiovascular Disease
DX: I48.21 Permanent atrial fibrillation (principal); I50.32 Chronic diastolic (congestive) heart failure; I34.0 Nonrheumatic mitral (valve) insufficiency

== ENCOUNTER → 2022-09-16 | Outpatient (CLI) | payer MEDICARE, BC | LOC: M SOG 08:43 | PROVIDERS: ATTEND Physician Assistant | DX: M79.641 Pain in right hand (principal); M79.642 Pain in left hand; M79.645 Pain in left finger(s) ==

== ENCOUNTER → 2022-11-03 | Outpatient (REF) | payer MEDICARE, BC ==
[~2022-11-03] MED LIST changes: +DILT120C42 PO; -DILT1CAP2 PO
[2022-11-03 13:37] LABS: BASO % 0.6 % (0.0-1.0); EOS # 0.2 10^3/uL (0.0-0.5); EOS % 2.6 % (0.0-3.0); HEMATOCRIT 33.2 % (42.0-52.0); HEMOGLOBIN 10.4 g/dl (13.5-17.5); LYMPH # 0.6 10^3/uL (1.5-5.0); LYMPH % 8.3 % (24.0-44.0); MEAN CORPUSCULAR HEMOGLOBIN 30.7 pg (27.0-33.0); MEAN CORPUSCULAR HGB CONC 31.3 g/dl (32.0-36.5); MEAN CORPUSCULAR VOLUME 97.9 fl (80.0-96.0); MONO # 0.8 10^3/uL (0.0-0.8); MONO % 11.6 % (2.0-8.0); NEUTROPHILS # 5.3 10^3/uL (1.5-8.5); NEUTROPHILS % 76.2 % (36.0-66.0); PLATELET COUNT, AUTOMATED 132 10^3/uL (150-450); RED BLOOD COUNT 3.39 10^6/uL (4.30-6.10)
[2022-11-03 13:55] LABS: ALBUMIN 3.1 G/DL (3.2-5.2); BILIRUBIN,TOTAL 2.3 MG/DL (0.3-1.2); CALCIUM LEVEL 8.9 MG/DL (8.3-10.6); CREATININE FOR GFR 1.56 MG/DL (0.70-1.30); GLOMERULAR FILTRATION RATE 44.9 (>35); POTASSIUM SERUM 4.6 MMOL/L (3.5-5.1); TOTAL PROTEIN 6.8 G/DL (5.7-8.2)
== END ==
LOC: M LABDRWAD 12:24
PROVIDERS: ATTEND Internal Medicine Cardiovascular Disease
DX: I50.32 Chronic diastolic (congestive) heart failure (principal); I48.21 Permanent atrial fibrillation; I34.0 Nonrheumatic mitral (valve) insufficiency; I27.81 Cor pulmonale (chronic); I11.0 Hypertensive heart disease with heart failure

== ENCOUNTER → 2022-11-06 | Outpatient (CLI) | payer MEDICARE, BC ==
[~2022-11-06] MED LIST changes: +BISO5TAB14; +FLUT1BLS8; +WARF4TAB51
== END ==
LOC: M PAIN 13:00
PROVIDERS: ATTEND Nurse Practitioner Family
DX: M79.10 Myalgia, unspecified site (principal); G89.29 Other chronic pain; E11.9 Type 2 diabetes mellitus without complications; G47.33 Obstructive sleep apnea (adult) (pediatric); Z95.0 Presence of cardiac pacemaker; Z87.891 Personal history of nicotine dependence; Z88.8 Allergy status to other drugs, medicaments and biological substances; Z79.01 Long term (current) use of anticoagulants; Z79.51 Long term (current) use of inhaled steroids; Z79.84 Long term (current) use of oral hypoglycemic drugs; Z79.899 Other long term (current) drug therapy

== ENCOUNTER 2022-11-10 13:15 | Emergency (ER) | payer MEDICARE, BC ==
[~2022-11-10] VITALS: Ht 170.2 cm; Wt 70.1 kg
[~2022-11-10 13:15] MED LIST changes: -BISO5TAB14; -FLUT1BLS8; -WARF4TAB51
[2022-11-10 13:16] VITALS: BP 105/52
[2022-11-10] MEDS ORDERED: BISO5TAB14 (13:27)
[2022-11-10] MEDS ORDERED: FLUT1BLS8 (13:27)
[2022-11-10] MEDS ORDERED: WARF4TAB51 (13:27)
== END 2022-11-10 14:20 | disposition home or self-care (01) ==
LOC: M ED 13:15
DX: K06.8 Other specified disorders of gingiva and edentulous alveolar ridge (principal); I48.91 Unspecified atrial fibrillation; I25.10 Atherosclerotic heart disease of native coronary artery without angina pectoris; I50.20 Unspecified systolic (congestive) heart failure; E11.9 Type 2 diabetes mellitus without complications; I10 Essential (primary) hypertension; E78.5 Hyperlipidemia, unspecified; Z95.0 Presence of cardiac pacemaker; Z95.5 Presence of coronary angioplasty implant and graft; Z79.01 Long term (current) use of anticoagulants; Z88.8 Allergy status to other drugs, medicaments and biological substances; Z79.51 Long term (current) use of inhaled steroids; Z79.899 Other long term (current) drug therapy

== ENCOUNTER 2022-11-27 15:11 | Emergency (ER) | payer MEDICARE, BC ==
[~2022-11-27] VITALS: Ht 170.2 cm; Wt 70.9 kg
[2022-11-27 16:05] LABS: BASO % 0.3 % (0.0-1.0); EOS # 0.1 10^3/uL (0.0-0.5); EOS % 1.6 % (0.0-3.0); HEMATOCRIT 25.9 % (42.0-52.0); HEMOGLOBIN 8.2 g/dl (13.5-17.5); LYMPH # 0.6 10^3/uL (1.5-5.0); LYMPH % 6.4 % (24.0-44.0); MEAN CORPUSCULAR HEMOGLOBIN 30.7 pg (27.0-33.0); MEAN CORPUSCULAR HGB CONC 31.7 g/dl (32.0-36.5); MONO % 11.5 % (2.0-8.0); NEUTROPHILS # 6.9 10^3/uL (1.5-8.5); NEUTROPHILS % 79.6 % (36.0-66.0); PLATELET COUNT, AUTOMATED 157 10^3/uL (150-450); RED BLOOD COUNT 2.67 10^6/uL (4.30-6.10); WHITE BLOOD COUNT 8.7 10^3/uL (4.0-10.0)
[2022-11-27 16:19] LABS: INR 2.29; PROTHROMBIN TIME 25.6 SECONDS (12.5-14.5)
[2022-11-27 16:20] LABS: PARTIAL THROMBOPLASTIN TIME 65.9 SECONDS (24.8-34.2)
[2022-11-27 16:45] LABS: ALBUMIN 3.2 G/DL (3.2-5.2); BILIRUBIN,DIRECT 0.9 MG/DL (<0.4); BILIRUBIN,TOTAL 2.9 MG/DL (0.3-1.2); CALCIUM LEVEL 8.1 MG/DL (8.3-10.6); CREATININE FOR GFR 1.47 MG/DL (0.70-1.30); GLOMERULAR FILTRATION RATE 48.1 (>35); POTASSIUM SERUM 4.4 MMOL/L (3.5-5.1); TOTAL PROTEIN 6.8 G/DL (5.7-8.2)
[2022-11-27] MEDS ORDERED: ISOVUE-370 76% 100ML VIAL As Ordered ONE (17:35)
[2022-11-27 18:51] LABS: RSV AMPLIFICATION NEGATIVE (NEGATIVE)
[2022-11-27 20:40] VITALS: BP 117/57
[2022-11-27 20:41] VITALS: TEMP 98; O2SAT 97
== END 2022-11-27 21:00 | disposition home or self-care (01) ==
LOC: M ED 15:11
DX: D64.9 Anemia, unspecified (principal); R79.1 Abnormal coagulation profile; I48.91 Unspecified atrial fibrillation; I50.20 Unspecified systolic (congestive) heart failure; E11.9 Type 2 diabetes mellitus without complications; I10 Essential (primary) hypertension; Z79.01 Long term (current) use of anticoagulants; Z95.0 Presence of cardiac pacemaker; Z88.8 Allergy status to other drugs, medicaments and biological substances; Z79.51 Long term (current) use of inhaled steroids; Z79.899 Other long term (current) drug therapy
CPT/HCPCS: 36415; 71260; 74177; 80048; 80053; 80076; 83880; 85025; 85610; 85730; 86850; 86900; 86901; 87631; 93005; 99284; Q9967

== ENCOUNTER → 2022-11-27 | Outpatient (CLI) | payer MEDICARE, BC ==
[~2022-11-27] MED LIST changes: +BISO5TAB14; +FLUT1BLS8; -K-TA10TA2 PO; +POTA-165 PO; +WARF4TAB51
[2022-11-27 13:02] LABS: BASO % 0.6 % (0.0-1.0); EOS # 0.2 10^3/uL (0.0-0.5); EOS % 2.4 % (0.0-3.0); HEMATOCRIT 25.5 % (42.0-52.0); HEMOGLOBIN 7.9 g/dl (13.5-17.5); LYMPH # 0.5 10^3/uL (1.5-5.0); MEAN CORPUSCULAR HEMOGLOBIN 30.6 pg (27.0-33.0); MEAN CORPUSCULAR VOLUME 98.8 fl (80.0-96.0); MONO # 0.7 10^3/uL (0.0-0.8); MONO % 10.1 % (2.0-8.0); NEUTROPHILS # 5.7 10^3/uL (1.5-8.5); NEUTROPHILS % 79.2 % (36.0-66.0); PLATELET COUNT, AUTOMATED 145 10^3/uL (150-450); RED BLOOD COUNT 2.58 10^6/uL (4.30-6.10); WHITE BLOOD COUNT 7.2 10^3/uL (4.0-10.0)
[2022-11-27 13:15] LABS: INR 2.26; PROTHROMBIN TIME 25.3 SECONDS (12.5-14.5)
[2022-11-27 13:31] LABS: ALBUMIN 3.1 G/DL (3.2-5.2); BILIRUBIN,TOTAL 2.8 MG/DL (0.3-1.2); CALCIUM LEVEL 7.9 MG/DL (8.3-10.6); CREATININE FOR GFR 1.47 MG/DL (0.70-1.30); GLOMERULAR FILTRATION RATE 48.1 (>35); POTASSIUM SERUM 4.1 MMOL/L (3.5-5.1); TOTAL PROTEIN 6.5 G/DL (5.7-8.2)
== END ==
LOC: M LABDRWAD 09:30
PROVIDERS: ATTEND Internal Medicine Cardiovascular Disease
DX: I50.32 Chronic diastolic (congestive) heart failure (principal); I48.21 Permanent atrial fibrillation; I34.0 Nonrheumatic mitral (valve) insufficiency; I11.0 Hypertensive heart disease with heart failure; I27.81 Cor pulmonale (chronic)

== ENCOUNTER → 2023-07-05 | Outpatient (REF) | payer BC, MEDICARE ==
[~2023-07-05] MED LIST changes: +DICL100G10 TOP; -DICL1GEL3 TOP; +MECL-209 PO; -MECL1TAB31 PO
== END ==
LOC: M LAB REF 09:01
PROVIDERS: ATTEND Family Medicine
DX: N39.0 Urinary tract infection, site not specified (principal)

== ENCOUNTER → 2023-10-28 | Outpatient (REF) | payer MEDICARE, BC ==
[~2023-10-28] MED LIST changes: -EPLE25TA PO; +EPLE25TA2 PO
[2023-10-28 17:07] LABS: APPEARANCE, URINE CLOUDY (CLEAR); BACTERIA, URINE AUTO 1+ (NEGATIVE); BILIRUBIN, URINE AUTO NEGATIVE (NEGATIVE); BLOOD, URINE BLOOD 2+ (NEGATIVE); COLOR, URINE AMBER (YELLOW); GLUCOSE, URINE (UA) AUTO NEGATIVE (NEGATIVE); KETONE, URINE AUTO NEGATIVE (NEGATIVE); LEUKOCYTE ESTERASE, URINE AUTO 3+ (NEGATIVE); NITRITE, URINE AUTO NEGATIVE (NEGATIVE); PROTEIN, URINE AUTO 1+ mg/dL (NEGATIVE); RBC, URINE AUTO 14 /HPF (0-3); SQUAMOUS EPITHELIAL CELL UR AU 2 /HPF (0-6); WBC, URINE AUTO TNTC /HPF (0-3)
== END ==
LOC: M LAB REF 16:12
PROVIDERS: ATTEND Family Medicine
DX: R30.0 Dysuria (principal)